=== PATIENT | female | born 1970 | race Caucasian/White ===

== ENCOUNTER 2016-09-23 15:41 | Inpatient (IN) | payer MEDICARE, MEDICAID ==
[~2016-09-23] VITALS: Ht 165.1 cm; Wt 62.5 kg
[2016-09-23 15:44] VITALS: BP 105/72; PULSE 115; RESP 16; O2SAT 98
--- NOTE | 2016-09-23 16:08 | ED.REPORT ---
HPI-Rash / Abscess Date of Service Sep 23, 2016 ED Provider: Maxwell Wong MD Pt is a 45 year old female with a hx of asthma, IV heroin abuse and multiple abscesses presenting to the ED complaining of redness, pain and swelling to her right arm, left arm, right thigh, and right hip. Associated symptoms include fever, nausea, vomiting, and abdominal tenderness onset last night. The wound on her right hip has been open for 6 months. Pt reports IV heroin use for 4 years, and that she began because her ex- was using. She reports that she has been into the ER about once per month for abscesses. She reports that her last heroin use was 12 hours ago. Pt reports that she recently moved into an apartment which she shares with others. There are other IV drug users living in the apartment. Nursing Notes Stated Complaint: ABSCESS Chief Complaint: Skin Rash/Abscess Nursing Notes Reviewed: Yes Allergies: Coded Allergies: Sulfa (Sulfonamide Antibiotics) (Verified Allergy, Severe, Rash,Itching,, 09/23/16) hydrocodone (Verified Allergy, Severe, Anaphylaxis, 09/23/16) ketamine (Verified Allergy, Severe, Swelling, big lips, 09/23/16) clonidine (Verified Adverse Reaction, Severe, Extrapyramidal Symptoms, 09/23) No Active Prescriptions or Reported Meds General Time Seen by MD: 16:06 Chief Complaint Abscess Hx Obtained From: Patient Arrived By: Walk-in Onset Occurred: More than a week ago... (6 months) Symptom Duration: Since onset Location: : Arm: Lower extremity Quality: Painful Severity: Current: Moderate Severity: Maximum: Moderate Recent Healthcare: No recent hospitalization, Recent doctor visit Similar Sx Previous: Yes Past Medical History Past Medical History Endocarditis 2 years ago Reports: IV Drug use Past Surgical History Multiple abscess I&Ds Smoking History Current Every Day Smoker Social History Drug Use: IV drugs, Meth Ambulatory Status Independent Review of Systems Constitutional: Reports: Fever GI: Reports: Abdominal pain, Nausea, Vomiting Skin: Reports Rash, Reports Swelling Complete sys rev & neg: except as marked. Physical Exam Initial Vital Signs Vital Signs (First) Date Time Temp Pulse Resp B/P Pulse Ox O2 Delivery O2 Flow Rate FiO2 09/23/16 15:44 36.4 115 16 105/72 98 Room Air Initial VS: Reviewed ENT: Mucous membranes moist, Conjunctiva normal, No scleral icterus Neck: Supple, Non-tender, Full range of motion Respiratory: Breath sounds normal, Clear to auscultation, No respiratory distress Cardiovascular: Regular rate & rhythm, Heart sounds normal, Intact distal pulses Abdomen / GI: Soft, Non-tender, No guarding, No rebound, No distention Extremities: Vascular intact, Neuro intact Neurologic: Alert, Oriented, Nonfocal Psychiatric: Mood/affect normal, Behavior normal, Normal thought content General/Constitutional: Awake, Alert, No acute distress, Well appearing Skin: Warm, Dry Lesion over right thigh: less than .5 cm. Small abscess, very superficial under area of 4x4 cm patch of granulation tissue. Right buttock: Scab, no visible abscess. Tender nodule no redness or abscess. Left arm: Draining purulent material on left upper arm. No abscess. Head / Eyes: Atraumatic, Normocephalic, EOMI, No nystagmus Small pupils Interpretation & Diagnostics Lab Results Interpretation Result Diagram: 09/23/16 1720 09/23/16 1720 Test 09/23/16 17:20 09/23/16 18:05 09/23/16 18:39 White Blood Count 32.1th/mm3 (3.8-10.1) Red Blood Count 4.54mil/mm3 (3.90-5.20) Hemoglobin 11.0g/dL (12.0-15.6) Hematocrit 34.5% (35.0-46.0) Mean Corpuscular Volume 76.0fL (81-100) Mean Corpuscular Hemoglobin 24.2pg (27.0-35.0) Mean Corpuscular Hemoglobin Concent 31.9% (32.0-37.0) Red Cell Distribution Width 14.8% (12.3-15.4) Platelet Count 504bil/L (150-400) Neutrophils (%) (Auto) 86.0% (40-74) Lymphocytes (%) (Auto) 7.4% (14-46) Monocytes (%) (Auto) 5.1% (4-12) Eosinophils (%) (Auto) 0.4% (0-5) Basophils (%) (Auto) 0.2% (0-3) Sodium Level 137mEq/L (134-144) Potassium Level 3.7mEq/L (3.5-5.2) Chloride Level 97mEq/L (97-108) Carbon Dioxide Level 23mmol/L (18-29) Blood Urea Nitrogen 22mg/dL (6-24) Creatinine 0.93mg/dL (0.57-1.00) Estimat Glomerular Filtration Rate 93mL/min (>59) Glucose Level 118mg/dL (60-99) Calcium Level 9.0mg/dL (8.5-10.1) Magnesium Level 2.1mg/dL (1.6-2.6) Total Bilirubin 0.3mg/dL (0.0-1.2) Aspartate Amino Transf (AST/SGOT) 101U/L (0-50) Alanine Aminotransferase (ALT/SGPT) 93U/L (0-32) Alkaline Phosphatase 229U/L (25-150) Troponin T < 0.010ug/L (0.0-0.011) Total Protein 8.5g/dL (6.4-8.4) Albumin 3.3g/dL (3.4-5.0) Lactic Acid Level 0.7mmol/L (0.4-2.0) Urine Color Yellow (YELLOW) Urine Appearance Clear (CLEAR,HAZY) Urine pH 5.0 (5.0-8.0) Urine Specific [place] 1.030 (1.003-1.035) Urine Protein 30mg/dL (NEG,TRACE) Urine Glucose (UA) Negativemg/dL (NEGATIVE) Urine Ketones Negativemg/dL (NEGATIVE) Urine Occult Blood Negative (NEGATIVE) Urine Nitrite Negative (NEGATIVE) Urine Bilirubin Negative (NEGATIVE) Urine Urobilinogen Normalmg/dL (NORMAL) Urine Leukocyte Esterase Negative (NEGATIVE) Urine RBC 0-2/hpf (0-2) Urine WBC 0-5/hpf (0-5) Urine Epithelial Cells Moderate/hpf (NONE-MOD) Urine Crystals None seen (NONE SEEN) Urine Bacteria Few/hpf (NONE-FEW) Urine Hyaline Casts None/lpf (NONE) Urine Granular Casts None seen (NONE SEEN) Urine Waxy Casts None seen (NONE SEEN) Urine Red Blood Cell Casts None seen (NONE SEEN) Urine White Blood Cell Casts None seen (NONE SEEN) Urine Mucus Present (None Seen) Urine Trichomonas None seen (NONE SEEN) Urine Yeast None (NONE SEEN) Urinalysis Comment None Urine Culture Reflexed Not indicated ECG Interpretation Time: 17:10 Interpreted by: ED physician Normal ECG Interpretation: Normal ECG w/ rate of... (93), Normal sinus rhythm Re-Eval/Medical Decision Med Decision/Clinical Course Regarding her opiate addiction I recommend Suboxone 16 mg every 24 hours. First dose should be at the patient's request as I feel she can best assess her withdrawal status and the appropriateness of first dosing. At the time of discharge, I recommend follow-up at ideal option, Dr. Serrano, Dr. Cantu or myself may be able to help with an outpatient prescription at the time of discharge. Re-Evaluation/Progress #1: Time of Eval: 17:20 Patient Status: Condition improved Re-Evaluation/Progress Note: Performed bedside ultrasound. Lesion over right thigh: less than .5 cm. Small abscess, very superficial under area of 4x4 cm patch of granulation tissue. Right buttock: Scab, no visible abscess. Tender nodule no redness or abscess. Left arm: Draining purulent material on left upper arm. No abscess. Re-Evaluation/Progress #2: Time of Eval: 17:55 Patient Status: Condition improved Re-Evaluation/Progress Note: Discussed plan for admission. Pt understands and agrees. Consultation : Referral / Consult Name: Jg Gunn MD Consulted With: Hospitalist Call Returned at: 19:09 Health Safety And Environment Manager: Will see patient, Agrees with plan, Accepts admit Counseled Regarding: Diagnosis, Lab results, Need for follow-up, When/why to return to ED Discharge & Departure Impression: Primary Impression: Fever Additional Impressions: IV drug abuse Opiate abuse, continuous Cellulitis Disposition: ADMITTED TO HOSPITAL Discharge Condition All VS Reviewed: Yes Condition: Improved Referrals: Guillaume Cortez MD (Family) Henny Attestation Portions of this note were transcribed by Candy Vazquez. I, Dr. Wong personally performed the history, physical exam and medical decision-making; I reviewed and confirmed the accuracy of the information in the transcribed note. Signed by: Henny Mei, 09/23/2016 at 9893. copies to: Guillaume Cortez MD, Kirk H MD Sep 23, 2016 16:08 CANDY VAZQUEZ Sep 23, 2016 16:24
[2016-09-23] MEDS ORDERED: Clindamycin Inj 900 MG in IV Premix 1 EACH IV ONE (17:00)
[2016-09-23] MEDS ORDERED: 0.9% Sodium Chloride 1,000 ML IV ONE (17:00)
[2016-09-23 17:33] LABS: BASOPHILS % (AUTO) 0.2 % (0-3); EOSINOPHILS % (AUTO) 0.4 % (0-5); MONOCYTES % (AUTO) 5.1 % (4-12); Mean Corpuscular Hemoglobin 24.2 pg (27.0-35.0); Platelet Count 504 bil/L (150-400)
[2016-09-23] MEDS ORDERED: Vancomycin Inj 1,250 MG in 0.9% Sodium Chloride 250 ML IV ONE (17:55)
[2016-09-23] MEDS ORDERED: Vancomycin Dose per Pharmacist XX ONE (17:55)
[2016-09-23 18:00] LABS: TROPONIN T < 0.010 ug/L (0.0-0.011)
[2016-09-23 18:05] LABS: Magnesium 2.1 mg/dL (1.6-2.6)
[2016-09-23 18:51] VITALS: BP 99/64; PULSE 94; RESP 15; O2SAT 98
[2016-09-23 18:55] LABS: APPEARANCE,URINE CLEAR (CLEAR,HAZY); COLOR,URINE YELLOW (YELLOW); OCCULT BLOOD,URINE NEGATIVE (NEGATIVE); UROBILINOGEN,URINE NORMAL (NORMAL)
[2016-09-23] MEDS ORDERED: Alum-Mag Hydrox-Simeth 30 mL Suspension PO PRN ×2 (20:40→22:05)
[2016-09-23] MEDS ORDERED: Ondansetron 2 mg/mL 2 mL Inj IVPUSH PRN (20:40)
[2016-09-23 21:00] VITALS: BP_SYST 100; BP_SYST 92; BP_DIAS 46; BP_DIAS 49; PULSE 84; PULSE 85; RESP 16; RESP 18; O2SAT 96; O2SAT 97
--- NOTE | 2016-09-23 21:04 | PCM.HPMED ---
Subjective Date of Service Sep 23, 2016 Primary Provider: Admitting Physician: Jg Gunn MD Primary Care Physician: Nopshayla Attending Physician: Jg Gunn MD Admit Status: From the Emergency Department Chief Complaint: Left arm pain and right leg pain. History of Present Illness: This is a 45 year old female with history of IV heroin use, endocarditis treated 2 years ago, and hepatitis C who presents with abscess. The most recent abscess began one week ago and is located in her left arm . She came to the ED on September 19 and had a I&D at that time and was placed onto doxycycline. She states that the abscess it much improved since the I&D although still somewhat tender. She also states she has a abrasion present on the lateral, right lower thigh . She states that this abrasion began six months ago and has not healed. She returned to the hospital today due to several episodes of vomiting and fever she measured of tmax 101.7f. She does have increased urinary frequency and describes urinary hesitancy as well. She continues to use IV heroin and her last use was 5:00am this morning. Of note, she expresses interest in suboxone as she does want to stop using. She did share needles with her up until several months ago. She denies any chest pain or pressure, shortness of breath, diarrhea, constipation. Patient is also requesting STD testing as she stated that her had multiple partners. In the ED initial vitals were temp 36.4c, pulse 115, respiratory rate 16, blood pressure 105/72, and satting at 97% on room air. Initial laboratory values are WBC of 32.1 with left shift, hgb 11.0, hct 34.5, mcv 76, platelet count of 504. CMP significant for glucose of 118, AST 101, ALT 93. EKG showed sinus rhythm with rate of 90 and no axis deviation. Qtc of 420. Blood cultures pending. In the ED she was given vancomycin, clindamycin. Bolus of NS given in ED. Review of Systems: A comprehensive review of systems was conducted with the patient and found to be negative except as above in the History of Present Illness. Allergies Coded Allergies: Sulfa (Sulfonamide Antibiotics) (Verified Allergy, Severe, Rash,Itching,, 09/23/16) hydrocodone (Verified Allergy, Severe, Anaphylaxis, 09/23/16) ketamine (Verified Allergy, Severe, Swelling, big lips, 09/23/16) clonidine (Verified Adverse Reaction, Severe, Extrapyramidal Symptoms, 09/23) Home Medications Aleve 1 per day. PMH History of endocarditis 2 years ago. IV heroin use. Anxiety Sleep disturbance Surgical History Hysterectomy in 2002 Cholecystectomy in 2004 Rectocele/cystocele repair 2006 History of I&D's of abscesses. Family History Mother: healthy Father: CAD and dementia. Social History Hx Alcohol Use: No Hx Substance Use: Yes (IV heroin daily, snorts meth infrequently.) Smoking Status: Current Every Day Smoker Additional Information Patient was homeless until two weeks ago. She now is renting a house. Exam Vital Signs Vital Sign - Last Date Time Temp Pulse Resp B/P Pulse Ox O2 Delivery O2 Flow Rate FiO2 09/23/16 18:51 94 15 99/64 98 09/23/16 15:44 36.4 Room Air Exam General: No acute distress, appropriately interactive HEENT: Normocephalic, atraumatic. External ears without defect. Pupils equal, round, and reactive to light and accommodation. Anicteric sclerae, moist conjunctivae, and no lid lag. Oropharynx free of erythema and cobble stoning with moist mucosa. Neck: Supple with full range of motion. No jugular venous distension. No bruits. No lymphadenopathy or thyromegaly. Cardiovascular: Regular rate and rhythm with no murmurs, rubs, or gallops appreciated Pulmonary: Clear to auscultation bilaterally with no crackles, wheezes, or rhonchi. Normal respiratory effort with no use of accessory muscles. Abdomen: Bowel tones present. Soft, nondistended, mild tenderness in right lower quadrant without rebound or guarding. No hepatosplenomegaly or masses appreciated. Extremities: No clubbing, cyanosis, edema appreciated. Skin: 3x5 cm abrasion of lateral, right thigh with overlaying granulation tissue and tenderness to palpation. Left, lateral upper arm. Small amount of discharge from open incision. No surrounding erythema. Neurological: Cranial nerves grossly intact. Normal muscle strength, tone, and bulk. Psychiatric: Normal mood and affect. Alert and oriented to person, place, and time. Lab and Diagnostics Result Diagram: 09/23/16 1720 09/23/16 1720 Assessment & Plan This is a 45 year old female IV heroin user with history significant for hepatitis c and treated endocarditis with multiple sites of possible infection on her body including abscess. Her WBC on admit was 32.1 with left shift with heart rate of 115. . She does qualify for sepsis criteria. 1 Liter bolus NS given in ED. Sites of possible infection include left upper arm abscess. I&D performed on this abscess in ED on September 19. Right lower extremity abrasion with granulation tissue overlaying that has been non-healing for six months. As she is a IV heroin user need to rule out endocarditis and blood cultures have been drawn. We have admitted her for IV antibiotics and to rule out endocarditis. Sepsis, present on admission, ongoing: -WBC 32.1. Heart rate 115. Multiple potential sources of infection. -Continue Vancomycin as this will cover purulent abscesses as well as potential for endocarditis. -MRSA swab pending, blood cultures pending ESR, CRP pending. -TTE ordered due to possibility of endocarditis. If this is negative but cultures positive consider KAYDEN. -NS at 75ml/hr. Right lateral lower extremity abrasion, present on admission, ongoing: -Present for six months and nonhealing. -Wound care ordered. Left arm abscess, present on admission, stable: -Improved after I&D on 09/19. Was on Doxycycline outpatient. -Wound care ordered. Microcytic anemia, present on admission, ongoing: On admit: hgb 11.0 and MCV 76.0. -Unknown chronicity. Possibly anemia of chronic disease vs iron deficiency anemia. -Iron studies panel, ferritin pending. -Fecal occult blood test ordered Thrombocytosis, present on admission, ongoing: -Platelets on admit 504. -Likely reactive. -Continue to monitor. Elevated transaminases, present on admission, ongoing: -AST 101, ALT 93. Alk phos 229. -Likley secondary to hepatitis c. -Continue to monitor. -Consider ultrasound of abdomen in morning. -Hepatitis panel ordered. Elevated blood glucose, present on admission, ongoing: -Glucose of 118. -Fasting glucose in morning ordered. IV heroin abuse, present on admission, ongoing: -At onset of symptoms of withdraw Suboxone 16mg (two strips). Could do third strip if needed. -As hospitalist can only prescribe Suboxone in hospital when patient leaves Dr. Wong or Dr. Talbert in the ED should be contacted prescribe outpatient Suboxone. -Encourage patient to followup with [facility] the local Suboxone providers. Reported history of hepatitis C, present on admission, ongoing: -Hepatitis panel ordered. High risk sexual behavior, present on admission: -Patient's had multiple partners. They were also sharing needles. -RPR, HIV, Gonorrhea/chlamydia ordered. DVT prophylaxis with enoxaparin. Patient is admitted under inpatient status with expected length of stay greater than 2 midnights due to severity of presenting symptoms, risk of adverse event, and complexity of treatment plan. Pain Evaluation: Adequate Pain Control Resuscitation Status: CPR: Attempt Resuscitation Attending Statement The patient was seen and examined together with Dr. Cruz on 09/23 and I agree with the history, exam and plan as outlined in the note above. Davy Cruz DO Sep 23, 2016 21:04 Jg Gunn MD Sep 23, 2016 22:28
[2016-09-23] MEDS: 0.9% Sodium Chloride 1,000 ML IV SCH (22:47)
[2016-09-23 23:16] LABS: Unsaturated Iron Binding 222.6 ug/dL
--- NOTE | 2016-09-23 23:27 | PCM.PHAPRO ---
Progress Date of Service: Sep 23, 2016 Left arm pain and right leg pain. Vancomycin Management Per Pharmacy: Indication: Abscess w/ sepsis Goal Trough: ~15 mg/dL Age: 45 yo F Weight: 62.7 kg Labs: WBC: 32.1 ESR/CRP: 80/20.3 Lactic Acid: 0.9 SrCr: 0.93 Est CrCl: ~70 mL/min Vitals: HR: Elevated on admit (115 BPM), now in the 80s BP: SBP in the high 90s RR: ~18 BPM Recommendation: Load: Vancomycin 1250 mg IV x 1 Maintenance: Vancomycin 1000 mg IV Q12h Vanco Trough: on 09/25 @ 0730 Pharmacy to continue to monitor and adjust as needed. Thank You, Maria Teresa Atwood, Pharm D. Maria Teresa Atwood Sep 23, 2016 23:27
[2016-09-23] MEDS: Ondansetron 2 mg/mL 2 mL Inj IVPUSH PRN (23:35)
[2016-09-24] VITALS (8 sets, daily range): BP systolic 102–132; BP diastolic 47–72; PULSE 69–92; RESP 18–20; O2SAT 94–98
--- NOTE | 2016-09-24 01:10 | NUR ---
Admit to room 3008@21:00 with fever and infective endocarditis. BP 100/49 P 85 96% O2 Sat on RA, 36.7 Celsius. Oriented to room and POC on whiteboard. Pain 5/10 refusing Tylenol, slight nausea and left arm/right thigh skin redness and pain. Alert and Oriented x3.
--- NOTE | 2016-09-24 01:15 | NUR ---
Med Rec Currently not taking any prescription medications. Verified preferred Pharmacy.
--- NOTE | 2016-09-24 05:49 | NUR ---
COWS Clinical Opiate Withdrawal Scale log in chart started @06:00 09/24/16 Score = 3 for resting pulse 85 +1, flushed face with visible sweat +2 Sedation Score = 0
[2016-09-24 06:07] LABS: BASOPHILS % (AUTO) 0.2 % (0-3); MONOCYTES % (AUTO) 5.3 % (4-12); Mean Corpuscular Hemoglobin 24.4 pg (27.0-35.0); Mean Corpuscular Volume 78.5 fL (81-100); NEUTROPHILS % (AUTO) 81.6 % (40-74); Platelet Count 459 bil/L (150-400)
--- NOTE | 2016-09-24 07:50 | PCM.PNMED ---
Subjective Date of Service Sep 24, 2016 Subjective Pt feeling "ok" this morning, certainly better than when she came in . Still having occasional sweats, no other complaints this morning. Denies chest pains, palpitations, or shortness of breath. She notes ulcerations are not very painful. NOt noting symptoms of opiate withdrawal, but also states this generally takes a little longer. She confirms a desire to restart Suboxone when able. Exam Vital Signs Vital Sign - Last Date Time Temp Pulse Resp B/P Pulse Ox O2 Delivery O2 Flow Rate FiO2 09/24/16 05:36 36.6 88 18 112/61 97 Room Air Intake and Output 09/23/16 09/23/16 09/24/16 Cumulative From/Thru 15:00 23:00 07:00 09/23/16 15:44 - 09/24/16 06:33 Intake Total 1000 ml 891 ml 1891 ml Balance 1000 ml 891 ml 1891 ml IV Total 1000 ml 891 ml 1891 ml General: Alert, Oriented X3, Cooperative, Mild Distress Eyes: Other (Mild dialation of pupils. ) Nose: Mucous Membr Moist/[place] Mouth: Mucous Membr Moist/[place] Chest & Lungs: Clear to auscultation & percussion Cardiovascular: Regular Rate/Rhythm, No Murmurs/Rubs/Gallops Abdomen: Non-tender, Non-distended, No hepatosplenomegaly Skin: Other (ulceration of right thigh, lesser skin irritation of left should. Pt is mildly diaphoretic, face especially. ) Neurological: Grossly Neurologically Intact, Other (NO yawning noted during exam. ) IVs and Medications Medications Reviewed: Medications were reviewed in detail Lab and Diagnostics Result Diagram: 09/24/16 0535 09/24/16 0535 Assessment & Plan This is a 45 year old female IV heroin user with history significant for hepatitis c and treated endocarditis with multiple sites of possible infection on her body including abscess. Her WBC on admit was 32.1 with left shift with heart rate of 115. . She does qualify for sepsis criteria. 1 Liter bolus NS given in ED. Sites of possible infection include left upper arm abscess. I&D performed on this abscess in ED on September 19. Right lower extremity abrasion with granulation tissue overlaying that has been non-healing for six months. As she is a IV heroin user need to rule out endocarditis and blood cultures have been drawn. We have admitted her for IV antibiotics and to rule out endocarditis. Sepsis, present on admission, ongoing: -WBC 32.1. Heart rate 115. Multiple potential sources of infection. -Continue Vancomycin as this will cover purulent abscesses as well as potential for endocarditis. -MRSA swab pending, blood cultures pending ESR, CRP pending. -TTE ordered still pending due to possibility of endocarditis. If this is negative but cultures positive consider KYADEN. - Continue NS at 75ml/hr. Right lateral lower extremity abrasion, present on admission, ongoing: -Present for six months and nonhealing. -Wound care ordered. Left arm abscess, present on admission, stable: -Improved after I&D on 09/19. Was on Doxycycline outpatient. -Wound care ordered. Microcytic anemia, present on admission, ongoing: On admit: hgb 11.0 and MCV 76.0. -Unknown chronicity. Possibly anemia of chronic disease vs iron deficiency anemia. -Iron studies panel, ferritin pending. -Fecal occult blood test ordered Thrombocytosis, present on admission, ongoing: -Platelets on admit 504. -Likely reactive. -Continue to monitor. Elevated transaminases, present on admission, ongoing: -AST 101, ALT 93. Alk phos 229. -Likley secondary to hepatitis c. -Continue to monitor. -Consider ultrasound of abdomen in morning. -Hepatitis panel ordered. - LFTs are downward trending. Elevated blood glucose, present on admission, ongoing: -Glucose of 118. -Fasting glucose in morning ordered. IV heroin abuse, present on admission, ongoing: -At onset of symptoms of withdraw Suboxone 16mg (two strips). Could do third strip if needed. -As hospitalist can only prescribe Suboxone in hospital when patient leaves Dr. Wong or Dr. Talbert in the ED should be contacted prescribe outpatient Suboxone. -Encourage patient to followup with [facility] the local Suboxone providers. - Withdrawl symptoms not yet significant enough to consider Suboxone induction, will revisit later today. Reported history of hepatitis C, present on admission, ongoing: -Hepatitis panel ordered. High risk sexual behavior, present on admission: -Patient's had multiple partners. They were also sharing needles. -RPR, HIV, Gonorrhea/chlamydia ordered. DVT prophylaxis with enoxaparin. Patient is admitted under inpatient status with expected length of stay greater than 2 midnights due to severity of presenting symptoms, risk of adverse event, and complexity of treatment plan. Pain Evaluation: Adequate Pain Control Resuscitation Status: CPR: Attempt Resuscitation Time spent 25 minutes Vikram Toussaint DO Sep 24, 2016 07:50
[2016-09-24] MEDS ORDERED: Vancomycin Dose per Pharmacist XX SCH (08:30)
[2016-09-24] MEDS ORDERED: Vancomycin 1 Gm/200 mL NS Premix IV SCH (08:30)
[2016-09-24] MEDS: 0.9% Sodium Chloride 1,000 ML IV SCH ×2 (10:25→23:01)
--- NOTE | 2016-09-24 10:57 | DRSVH ---
[facility] [address] [place] [address] Echocardiogram Report Name: KIRSTEN KAUFFMAN Date: 09/24/2016 Height: 65 in Hospital Exam Location: [facility] Weight: 138 lb Gender: Female BSA: 1.7 m2 : 1970 Age: 45 yrs BP: 112/61 mmHg Reason For Study: Fever, IVDA History: Hx. endocarditis Ordering Physician: HOSPITALIST ARANZA Performed By: Ruben Montes Referring Physician: RAMY THAPA Interpretation Summary Patient cancelled exam longterm into parasternals due to discomfort. The left ventricular ejection fraction is grossly normal. There is no significant valvular heart disease. Procedure: A two-dimensional transthoracic echocardiogram with color flow and Doppler was performed. The study quality was technically adequate. Left Ventricle: The left ventricular ejection fraction is grossly normal. Mitral Valve: The mitral valve is grossly normal. There is trace mitral regurgitation. Aortic Valve: The aortic valve is normal in structure and function. No aortic regurgitation is present. Tricuspid Valve: The tricuspid valve is not well visualized, but is grossly normal. There is mild tricuspid regurgitation. MMode/2D Measurements & Calculations LVIDd LVOT diam LV briscoe. diameter/BSA LV sys. diameter/BSA : 4.5 cm (cm/m^2): 2.7 (cm/m^2): 1.9 LVIDs Ao root diam : 3.2 cm FS: 27.6 % asc Aorta Diam EPSS : 0.3cm IVSd : 0.8cm LVPWd : 0.8cm Doppler Measurements & Calculations TR max tami: 209.0 cm/sec TR max P.5 mmHg Electronically signed by: Guero Saravia on Reading Physician:09/24/2016 10:56 AM
--- NOTE | 2016-09-24 11:00 | NUR ---
COWS Pt scoring a 9 on COWS scale. Pt initially req Suboxone then stated, "I'll take it later... when I feel worse." Pt is req something for "restless legs." notified. Addendum: 09/24/16 at 1509 by MODESTA CARTER RN *Subutex ordered, not Suboxone.
[2016-09-24] MEDS: Buprenorphine 2 mg SL Tablet SL PRN (11:31)
[2016-09-24] MEDS: Ondansetron 2 mg/mL 2 mL Inj IVPUSH PRN ×2 (11:35→17:39)
--- NOTE | 2016-09-24 11:41 | NUR ---
COWS Pt reports she feels she is "really withdrawing now, I've done this before and it's miserable." COWS score at 17, SL Suboxone given as well as IV antiemetic. Addendum: 09/24/16 at 1455 by MODESTA CARTER RN within ~45 minutes, pt COW score 0. Addendum: 09/24/16 at 1508 by MODESTA CARTER RN *Subutex given, not Suboxone.
[2016-09-24] MEDS ORDERED: cefTRIAXone Inj 1,000 MG in Dextrose 5% Minibag Plus 50 ML IV SCH (13:25)
--- NOTE | 2016-09-24 15:46 | NUR ---
Wound Note Wound orders received, Patient seen at bedside. 45 yo female with right lateral thigh wound and left lateral deltoid wound in setting of IV drug habit. Right lateral thigh wound: 5 cm L x 2.5 cm W x 0.1 cm D, wound base is granulation tissue, wound is chronic in appearance (previously treated with NPWT), cleaned this wound with saline and gauze, redressed with Xeroform (yellow) and adhesive foam dressing. Left lateral deltoid wound: 1 cm L x 0.5 cm W x 1 cm D, tunnels 2 cms inferiorly, cleaned this wound with q tips and hydrogen peroxide, packed with a single strip of Aquacell ag (in room,foil package) covered with 2x2 gauze and steri stripped in place. Patient tolerated treatment well. Wounds to be cleaned and dressings to be changed by nursing daily during hospitalization. Follow up at wound center on discharge.
[2016-09-24] MEDS: DAPTOmycin Inj 500 MG in 0.9% Sodium Chloride 50 ML IV SCH (17:38)
--- NOTE | 2016-09-24 18:38 | NUR ---
Activity/nausea Pt amb to BR ind, tolerating activity well with no c/o dizziness with change in position. One c/o nausea this AM, PRN antiemetic effective. COWS at a 1 for nausea. Bed in lowest, locked position and call light in reach.
--- NOTE | 2016-09-24 21:58 | DRSVH ---
PROCEDURE: MRI FEMUR RIGHT WITH AND WITHOUT CONTRAST ([id number]) INDICATIONS: Persistent right lat thigh abscess in IVDU-? sinus tra TECHNIQUE: Noncontrast coronal T1 spin echo and STIR, sagittal T1 spin echo with fat saturation and STIR, axial T1 spin echo and T2 fast spin echo with fat saturation. After the administration of contrast, axial/ sagittal/coronal T1 spin echo with fat saturation through the right thigh. COMPARISON: None. FINDINGS: Image quality: Excellent. Bones: The visualized bone marrow demonstrates normal signal on all sequences. The overlying cortex appears intact. No abnormal intraosseous enhancement. Soft tissues: There is skin thickening and increased enhancement in the right lateral thigh, consist ent with cellulitis. No subcutaneous fluid collection. No sinus tract is identified. No soft tissue m ass is visualized. The scanned muscles demonstrate normal overall bulk and internal signal. There a re mildly enlarged inguinal lymph nodes bilaterally, most likely reactive adenopathy. IMPRESSION: 1. Cutaneous thickening with T2 increased signal and enhancement consistent with cellulitis. No fluid collection is present. 2. No evidence of osteomyelitis. 3. Bilateral enlarged inguinal lymph nodes, most likely reactive. Dictated by: Erika Park M.D. on 09/24/2016 at 20:48 Transcribed by: NIKI on 09/24/2016 at 20:57 Approved by: Erika Park M.D. on 09/25/2016 at 19:18
[2016-09-25] VITALS (8 sets, daily range): BP systolic 109–130; BP diastolic 61–76; PULSE 65–88; RESP 18; O2SAT 97–99
[2016-09-25] MEDS: 0.9% Sodium Chloride 1,000 ML IV SCH (04:56)
--- NOTE | 2016-09-25 05:48 | NUR ---
Uneventful Patient slept throughout the night. denies pain/discomfort. dressings to left upper arm and right thigh c/d/i. IVF infusing. patient COWS score low 1-3 slight sweating noticed at 0400. no other s/s of withdrawal at this time. will continue to monitor
--- NOTE | 2016-09-25 07:07 | CONS ---
[address] [address] CONSULTATION REPORT PATIENT: KIRSTEN KAUFFMAN : 1970 MR#: [id number] ADMIT: 09/23/2016 JOB ID: [id number] INFECTIOUS DISEASE CONSULTATION: DATE OF SERVICE: 09/24/[address] Khan for this consult. REASON FOR CONSULTATION: Multiple soft tissue infections in an IV drug user. HISTORY OF PRESENT ILLNESS: The patient is a 45-year-old mcc IV heroin user who just moved to this area from [place]. She tells me that in recent years she has had a long hospital stay, two months, at [facility] with endocarditis. She is not aware of any of the particulars, but says she was critically ill. Over the past year or two she has had numerous admissions to [facility] in [place] including a recent week long hospital stay for a severe right upper extremity abscess. She also notes she has a chronic right thigh infection for which she is off and on antibiotics. The patient states that she has had chronic drainage from her right upper thigh for months, and she has been told that it is bad cellulitis. Her right upper arm infection she said was cured during her recent week long stay in [place]. Now, she has developed fevers and chills, headache, blurry vision, myalgias, arthralgias and severe left triceps pain. This started a couple weeks ago. Five days ago she went to [facility] where an incision and drainage was performed. They did a culture and I, after considerable effort, obtained the result. The culture at [facility], five days ago, grew MRSA as well as group A strep. The result of that culture is now on the chart. Interestingly, the MRSA was resistant to Bactrim and clindamycin and was quite a nasty organism. The patient was given a prescription for doxycycline when she left [facility] last week, but she says she did not have any money to get the prescription, so never took any of the antibiotic. She now presents and is admitted here with worsening left upper extremity pain in and around the triceps. PAST MEDICAL HISTORY: 1. Endocarditis, treated at [facility] two years ago for two months. 2. Hepatitis C which reports is active but she has no details. 3. Innumerable soft tissue infections, mostly treated at [facility] as well as [facility], all due to IV heroin use. 4. IV heroin use. SOCIAL HISTORY: The patient does not drink alcohol but injects heroin every day and sometimes snorts meth. She is an ongoing cigarette smoker. She is intermittently homeless but lately living with a number of friends who apparently also do heroin here in the [facility] area. FAMILY HISTORY: Negative for tuberculosis in first degree relatives. REVIEW OF SYSTEMS: The patient states she has been having headaches for a couple of weeks as well as blurry vision. She has also had a mild sore throat, but no trouble swallowing. She states she has not had a stiff neck. She does not have cough, shortness of breath or chest pain. She has had nausea and vomiting for a week or two. No abdominal pain. No urgency, frequency or dysuria, and she is not . She has pain on her right lateral thigh which is chronic from a draining wound there. She also has an abscess in her left triceps for which she was seen last week at [facility]. The remainder of the review of systems is negative. PHYSICAL EXAMINATION: Reveals a somewhat disheveled woman who looks older than 45. She is afebrile. Temperature 36.6, pulse 86, respiratory rate 19, blood pressure 132/65. She is saturating while on room air. She is awake and alert. Eyes without conjunctival hemorrhage. Nose is normal. Oral cavity: No thrush or . Neck: Supple. Her lung are clear. Cardiac: Tones regular rate and rhythm without a murmur. Her abdomen is soft and nontender. There is no hepatosplenomegaly. No ascites and no caput medusae. She does have some mild suprapubic tenderness however without a palpable mass or bladder. No inguinal adenopathy. In the left triceps area, there is a packed abscess measuring about 3 x 3 cm. I removed some of the packing but not all of it. This area of induration is surrounded by cellulitis. The right triceps seems benign, but there is a scar there from her prior abscess. The right lateral thigh has about a 3 x 2 cm open, draining wound. She says this has been there for months. The feet and ankles appear normal. There are no other areas of soft tissue infection. There are needle tracks. The patient is neurologically intact. LABORATORIES: Labs included a white count yesterday when she was admitted, 32,000; today 20,000. Left shift is noted. Creatinine 0.71. ALT is 56, ALT 176, albumin 2.7. CRP is 20. Urine: Less than 5 white cells. Hep C is pending, but the patient says it always positive. RPR is pending as well. Three sets of blood cultures are negative, but they are only 24 hours old. MRSA screen of the nose is negative, but the abscess culture from [facility] five days ago was growing MRSA and group A strep. An echocardiogram has been done. The patient interrupted it before it was complete complaining of pain from the transthoracic echo, but no valvular lesions were seen. X-rays have not been done during this admission. IMPRESSION: This is a very active IV drug user with many, many serious infections the past couple of years by her report. She has never been seen at our hospital. She has had endocarditis and abscesses and says she has a chronic draining wound in her right lateral thigh which she has been told is unusual cellulitis. I am concerned there could be deeper infection to the right thigh, such as osteo with a sinus tract. Also notable is that she has a very acute left triceps abscess and we know that has got MRSA and group A strep in it. RECOMMENDATIONS: 1. I asked the forward air controller/air officer to get all relevant records from [facility] and [facility]. 2. I spoke to the people in [place] myself and got a copy of the lab results from last week. 3. The patient's current antibiotic is ceftriaxone which will be inadequate. We will go ahead and stop that and instead put her on daptomycin, a dose of 500 mg IV once a day. 4. We await the pending blood cultures. 5. I will order an MRI scan of the right thigh. 6. We will await the Hep C and HIV information. 7. I would not give this patient a PICC line. If she does well and we have no proof of endocarditis by Tuesday we will send her out with a dose of dalbavancin. Thank you very much for consult. LAURIE
[2016-09-25 07:14] LABS: Hepatitis A Antibody IgM Negative (Negative); Hepatitis B Core Antibody IgM Negative (Negative)
[2016-09-25] MEDS ORDERED: Vancomycin Serum Trough XX ONE (07:30)
[2016-09-25 08:26] LABS: BASOPHILS % (AUTO) 0.4 % (0-3); EOSINOPHILS % (AUTO) 4.5 % (0-5); MONOCYTES % (AUTO) 6.8 % (4-12); Mean Corpuscular Hemoglobin 24.4 pg (27.0-35.0); NEUTROPHILS % (AUTO) 64.8 % (40-74); Platelet Count 457 bil/L (150-400)
--- NOTE | 2016-09-25 09:20 | NUR ---
HUMBERTO Signed. BASHIR Blake
[2016-09-25] MEDS: Buprenorphine 2 mg SL Tablet SL PRN (09:24)
[2016-09-25 09:49] LABS: Bilirubin, Direct 0.2 mg/dL (0.0-0.3)
--- NOTE | 2016-09-25 11:14 | NUR ---
Social Work-initial assessment/ chemical dependency: Data:See initial assessment. Pt is a 45 y/o female who was admitted on 09/23/16 for fever and IV drug use per H&P. Pt's insurance is [facility] and [facility] supp and PCP is not listed. EMR reviewed. Pt's readmission score is 4-high risk. SANDRA met with pt at bedside to discuss discharge planning, SANDRA role explained. Pt is alert and oriented x3. Pt just recently moved to [place], had been homeless prior to this. Pt now living in a house where she rents a room. Pt is independent at baseline and does not drive. Pt uses the local bus for transport. Pt has no HH or SNF history. pt has no terminal worker care insurance or VA benefits. SW discussed DPOA/ advanced directive, pt declining information at this time. Pt states her mother lives out of the area, but her closest friend is Lambert Dinero, . Pt is being followed by [facility] and pt may require long course of IV abx. Pt anticipates to discharge back her home when medically stable. MD order received for substance use discussion and resources. SANDRA discussed pt's IV heroin and occasion Meth use. Pt states she has been using heroin for about 3 years with minimal amounts of sobriety. Pt states she occasionally uses meth, but not very often. Pt states she has been to intpt treatment before at [facility] and has done detox programs several times. Pt hopes to get on Suboxone program. SANDRA discussed CPD here at the hospital and pt is agreeable to meeting with Lisa. SANDRA had pt sign GILL, original placed in the chart. SANDRA provided referral to [facility]. SANDRA will continue to follow. Pt does not have PCP locally in this community, SANDRA will await orders for further discussion around PCP likely at [facility]. Assessment:Pt to benefit from CDP. Plan:Anticipate pt to discharge home when medically stable. Pt may need long course of IV abx. GILL signed for Lisa with [facility] to meet with pt, SANDRA has provided referral. SANDRA will continue to follow. BASHIR Blake Addendum: 09/25/16 at 1121 by CARLITOS HERRON SS Amended: Links added. Addendum: 09/26/16 at 1043 by CARLITOS HERRON SS [facility] has seen pt and will continue to work with pt while Hospitalization. Pt is hopeful to get into Suboxone clinic and do outpt CD treatment. BASHIR Blake
--- NOTE | 2016-09-25 11:32 | PCM.PNMED ---
Subjective Date of Service Sep 25, 2016 Subjective Patient overall doing well overnight. Denies any fever chills or sweats. He also denies any chest pains or palpitations, difficulties breathing. She is still experienced significant pain however sites of ulceration especially on right thigh, not currently controlled with when necessary medications. Has requested Motrin which was effective in the past. No other acute complaints at this time. Appetite is good. Symptoms of opiate withdrawal are essentially resolved since initiation of Suboxone. Exam Vital Signs Vital Sign - Last Date Time Temp Pulse Resp B/P Pulse Ox O2 Delivery O2 Flow Rate FiO2 09/25/16 10:59 70 09/25/16 08:47 36.4 113/71 09/25/16 04:47 18 98 Room Air Intake and Output 09/24/16 09/24/16 09/25/16 Cumulative From/Thru 15:00 23:00 07:00 09/23/16 15:44 - 09/25/16 06:07 Intake Total 800 ml 1805 ml 1231 ml 5727 ml Output Total 825 ml 1600 ml 2025 ml 4450 ml Balance -25 ml 205 ml -794 ml 1277 ml Intake Oral 800 ml 1036 ml 400 ml 2236 ml IV Total 769 ml 831 ml 3491 ml Output Urine Total 825 ml 1600 ml 2025 ml 4450 ml # Bowel Movements 1 1 Exam General: Alert, Oriented X3, Cooperative, No acute Distress Eyes: PERRL, normal sized pupils Mouth: Mucous Membrane Moist/Madeline Chest & Lungs: Clear to auscultation & percussion Cardiovascular: Regular Rate/Rhythm, No Murmurs/Rubs/Gallops Abdomen: Non-tender, Non-distended, No hepatosplenomegaly Skin: Ulceration of right thigh, lesser skin irritation of left should. Pt non- diaphoretic. Neurological: Grossly Neurologically Intact, No yawning noted during exam. IVs and Medications Medications Reviewed: Medications were reviewed in detail Lab and Diagnostics Result Diagram: 09/25/1673409/25/16 0735 Assessment & Plan This is a 45 year old female IV heroin user with history significant for hepatitis c and treated endocarditis with multiple sites of possible infection on her body including abscess. Her WBC on admit was 32.1 with left shift with heart rate of 115. . She does qualify for sepsis criteria. 1 Liter bolus NS given in ED. Sites of possible infection include left upper arm abscess. I&D performed on this abscess in ED on September 19. Right lower extremity abrasion with granulation tissue overlaying that has been non-healing for six months. As she is a IV heroin user need to rule out endocarditis and blood cultures have been drawn. We have admitted her for IV antibiotics and to rule out endocarditis. Sepsis, present on admission, ongoing: -WBC 32.1. Heart rate 115. Multiple potential sources of infection., now improving. -Continue Vancomycin discontinued with negative MRSA, however given concern for deep infection of thigh per ID recs, pt has been transitioned at the recommendation of infectious disease specialist to [facility]. -Blood cultures pending, as are outpatient records pertaining to previous blood and wound cultures. -TTE was not completed due to patient discomfort, but initial review did not seem to demonstrate evidence of valvular pathology. If blood cultures are positive or concern is anxiety may need to consider KAYDEN in the future - Continue NS at 75ml/hr. Right lateral lower extremity abrasion, present on admission, ongoing: -Present for six months and nonhealing. -Wound care ordered. Left arm abscess, present on admission, stable: -Improved after I&D on 09/19. Was on Doxycycline outpatient. -Wound care ordered. Microcytic anemia, present on admission, ongoing: On admit: hgb 11.0 and MCV 76.0. -Unknown chronicity. Possibly anemia of chronic disease vs iron deficiency anemia. -Iron studies panel, ferritin pending. -Fecal occult blood test ordered Thrombocytosis, present on admission, ongoing: -Platelets on admit 504. -Likely reactive. -Continue to monitor. Elevated transaminases, present on admission, ongoing: -AST 101, ALT 93. Alk phos 229. -Likely secondary to hepatitis c. -Continue to monitor. -Consider ultrasound of abdomen in morning. -Hepatitis panel ordered. - LFTs are downward trending. Elevated blood glucose, present on admission, ongoing: -Glucose of 118. -Fasting glucose in morning ordered. IV heroin abuse, present on admission, ongoing: -At onset of symptoms of withdraw Suboxone 16mg (two strips) was provided with good result - As is now continue daily. -As hospitalist can only prescribe Suboxone in hospital when patient leaves Dr. Wong or Dr. Talbert in the ED should be contacted prescribe outpatient Suboxone. -Encourage patient to followup with [facility] the local Suboxone providers. Reported history of hepatitis C, present on admission, ongoing: -Hepatitis panel ordered, confirms hepatitis C no other pathology noted. High risk sexual behavior, present on admission: -Patient's had multiple partners. They were also sharing needles. -No evidence of STD or HIV based on screening studies. Pain Evaluation: Adequate Pain Control Resuscitation Status: CPR: Attempt Resuscitation Time spent 30 minutes Vikram Toussaint DO Sep 25, 2016 11:32 Time spent 30 minutes Vikram Toussaint DO Sep 25, 2016 11:32
--- NOTE | 2016-09-25 15:03 | NUR ---
Pain Patient had complaints of 7/10 pain to right thigh. Patient was offered Tylenol, but patient requested Ibuprofen. MD notified and Ibuprofen 600mg PO was ordered and administered to Patient. Patient reassessed and stated Medication was helpful and patient decreased to 4/10.
[2016-09-25] MEDS: DAPTOmycin Inj 500 MG in 0.9% Sodium Chloride 50 ML IV SCH (17:01)
[2016-09-26] VITALS (10 sets, daily range): BP systolic 101–127; BP diastolic 51–74; PULSE 63–78; RESP 18; O2SAT 97–98
[2016-09-26] MEDS: 0.9% Sodium Chloride 1,000 ML IV SCH ×2 (00:49→08:08)
[2016-09-26 05:08] LABS: BASOPHILS % (AUTO) 0.5 % (0-3); EOSINOPHILS % (AUTO) 4.8 % (0-5); MONOCYTES % (AUTO) 5.7 % (4-12); Mean Corpuscular Volume 76.8 fL (81-100); NEUTROPHILS % (AUTO) 67.5 % (40-74); Platelet Count 372 bil/L (150-400)
--- NOTE | 2016-09-26 05:24 | NUR ---
Pain/Nausea Patient reports leg pain 7/10 achy in her right leg. She was medicated with Ibuprofen per request. Patient also reported nausea and was given 4mg of zofran. 30 minutes later patient sleeping. breathing nonlabored. appears comfortable. no s/s of withdrawal throughout the night. vitals stable. IVF infusing. dressings to left forearm and right thigh remain c/d/i.
[2016-09-26] MEDS: Buprenorphine 2 mg SL Tablet SL PRN (09:30)
--- NOTE | 2016-09-26 11:21 | PCM.PNMED ---
Subjective Date of Service Sep 26, 2016 Subjective Patient continues to feel improved. Appetite is good and energy level better, experiencing no symptoms of withdrawal on current dosage of Suboxone. She is Having no opiate cravings. She also denies any fever chills or sweats. She continued to deny palpitations or chest pains. Thigh pain as well though present has decreased. Exam Vital Signs Vital Sign - Last Date Time Temp Pulse Resp B/P Pulse Ox O2 Delivery O2 Flow Rate FiO2 09/26/16 10:54 37.0 73 18 120/74 98 Room Air Intake and Output 09/25/16 09/25/16 09/26/16 Cumulative From/Thru 15:00 23:00 07:00 09/23/16 15:44 - 09/26/16 06:12 Intake Total 2948 ml 1181 ml 9856 ml Output Total 600 ml 2025 ml 7075 ml Balance 2348 ml -844 ml 2781 ml Intake Oral 1902 ml 355 ml 4493 ml IV Total 1046 ml 826 ml 5363 ml Output Urine Total 600 ml 2025 ml 7075 ml # Bowel Movements 0 1 Exam General: Alert, Oriented X3, Cooperative, No acute Distress Eyes: PERRL, normal sized pupils Mouth: Mucous Membrane Moist/[place] Chest & Lungs: Clear to auscultation & percussion Cardiovascular: Regular Rate/Rhythm, No Murmurs/Rubs/Gallops Abdomen: Non-tender, Non-distended, No hepatosplenomegaly Neurological: Grossly Neurologically Intact, IVs and Medications Medications Reviewed: Medications were reviewed in detail Lab and Diagnostics Result Diagram: 09/26/16 0450 09/26/16 0450 Assessment & Plan This is a 45 year old female IV heroin user with history significant for hepatitis c and treated endocarditis with multiple sites of possible infection on her body including abscess. Her WBC on admit was 32.1 with left shift with heart rate of 115. . She does qualify for sepsis criteria. 1 Liter bolus NS given in ED. Sites of possible infection include left upper arm abscess. I&D performed on this abscess in ED on September 19. Right lower extremity abrasion with granulation tissue overlaying that has been non-healing for six months. As she is a IV heroin user need to rule out endocarditis and blood cultures have been drawn. We have admitted her for IV antibiotics and to rule out endocarditis. Sepsis, present on admission, ongoing: -WBC 32.1. Heart rate 115. Multiple potential sources of infection., now improving. -Continue Vancomycin discontinued with negative MRSA, however given concern for deep infection of thigh per ID recs, pt has been transitioned at the recommendation of infectious disease specialist to [facility]. -Blood cultures pending, as are outpatient records pertaining to previous blood and wound cultures. -TTE was not completed due to patient discomfort, but initial review did not seem to demonstrate evidence of valvular pathology. If blood cultures are positive or concern is anxiety may need to consider [facility]DEN in the future - Discontinue intravenous fluids given good by mouth intake Right lateral lower extremity abrasion, present on admission, ongoing: -Present for six months and nonhealing. -Wound care ordered. Left arm abscess, present on admission, stable: -Improved after I&D on 09/19. Was on Doxycycline outpatient. -Wound care ordered. Microcytic anemia, present on admission, ongoing: On admit: hgb 11.0 and MCV 76.0. - Unknown chronicity. Possibly anemia of chronic disease vs iron deficiency anemia. - Condition is stable - Iron studies suggestive of iron deficiency setting of chronic disease, given low iron-binding capacity in the setting of anemia and low iron levels. This may be the result of poor self-care given comorbid substance abuse. - We will continue to monitor with improved diet and lifestyle. Thrombocytosis, present on admission, ongoing: -Platelets on admit 504. -Likely reactive. -Continue to monitor. Elevated transaminases, present on admission, ongoing: -AST 101, ALT 93. Alk phos 229. -Likely secondary to hepatitis c. -Continue to monitor. -Consider ultrasound of abdomen in morning. -Hepatitis panel ordered, confirms hepatitis C but no other infectious liver disease is noted. - LFTs have since last. Elevated blood glucose, present on admission, ongoing: -Glucose of 118. -Fasting glucose in morning ordered. IV heroin abuse, present on admission, ongoing: -At onset of symptoms of withdraw Suboxone 16mg (two strips) was provided with good result - Now continue daily. -As hospitalist can only prescribe Suboxone in hospital when patient leaves Dr. Wong or Dr. Talbert in the ED should be contacted prescribe outpatient Suboxone. -Encourage patient to followup with [facility] the local Suboxone providers. Reported history of hepatitis C, present on admission, ongoing: -Hepatitis panel ordered, confirms hepatitis C no other pathology noted. - Given normalizing liver functions, treatment may be deferred to outpatient setting if needed. High risk sexual behavior, present on admission: -Patient's had multiple partners. They were also sharing needles. -No evidence of STD or HIV based on screening studies. Pain Evaluation: Adequate Pain Control Resuscitation Status: CPR: Attempt Resuscitation Time spent 30 minutes Vikram Toussaint DO Sep 26, 2016 11:21
[2016-09-26] MEDS ORDERED: Dalbavancin Inj 1,500 MG in Dextrose 5% 500 ML IV ONE (13:55)
[2016-09-26] MEDS ORDERED: Dextrose 5% 250 ML IV ONE (14:10)
--- NOTE | 2016-09-26 14:36 | PROG NOTE ---
[address] [address] PROGRESS NOTE PATIENT: KIRSTEN KAUFFMAN : 1970 MR#: [id number] ADMIT: 09/23/2016 JOB ID: [id number] DATE: 09/26/2016 REASON FOR FOLLOWUP: Left triceps and right thigh soft tissue infections in an IV drug user. INTERVAL HISTORY: The patient reports over the weekend, she has gradually felt better with no fevers, chills, or sweats but she is profoundly weak. When I ask her if she is well enough to be discharged, she says no because she is too tired and has basically been sleeping all day. Note that her left triceps, however, is gradually improving, as is her right thigh open wound. No significant cough, nausea, vomiting, diarrhea. PHYSICAL EXAMINATION: Reveals a comfortable woman who has been afebrile since admission. Temperature is now 37, pulse 73, respiratory rate 18, blood pressure 120/74. She is saturating well on room air. She is awake, smiling and comfortable. Oral cavity negative. No thrush or pharyngitis. The lungs are clear. Cardiac tones without new murmur. Abdomen benign. The left triceps abscess is packed but it actually seems to be shrinking in size and improving. The right lateral thigh, open, about 4 cm wound is shallow and without much in the way of surrounding inflammation, though it has not healed much either since I saw it earlier. LABORATORIES: Include white count 12,000, which is stable but a lot better than 32,000 when she came in. The diff is unremarkable. Creatinine 0.65, albumin 2.8. Serologic studies are negative except for hep C that is positive and micro studies include negative blood cultures, negative MRSA screen. IMAGING: Includes the x-ray of the femur, MRI of the femur that I had ordered looking for a sinus tract. It shows some cellulitis where the wound is but no osteomyelitis or sinus tract. IMPRESSION: This patient has both group A Strep and methicillin-resistant Staphylococcus aureus infection in her left triceps as determined by a culture done prior to this admission at [facility]. Her cultures here have been negative and the patient seems much improved. At this point, I think she could be discharged after a single dose of dalbavancin. RECOMMENDATIONS: 1. Will discontinue the daptomycin she is receiving as of today. 2. A single 1.5 g dose of dalbavancin will be given which should be sufficient to treat her left triceps and right lateral thigh infection. 3. It may be reasonable for the patient to follow up in the wound clinic for evaluation and further management of that right thigh lesion. 4. The patient could be discharged at any time from the ID point of view. She feels she is too weak to go today and so I leave this to the hospitalist, but ID will go ahead and sign off at this time. Thank you very much.
--- NOTE | 2016-09-26 14:42 | NUR ---
Dressing change Patient right thigh dressing was removed, cleansed with NS and Xeroform and Mepilex applied afterward to cover. Scant amount of drainage while cleaning leg, but remains painful during dressing change. Left arm dressing was removed and when removed oozed moderate off white fluid from wound. Wound cleansed with hydrogen peroxide using a Q-tip. Arm wound packed with Aquacel dressing and covered with gauze and taped in place. Arm wound was not as painful to patient today as it was yesterday during the dressing change.
[2016-09-26] MEDS: Ondansetron 2 mg/mL 2 mL Inj IVPUSH PRN (17:18)
--- NOTE | 2016-09-26 18:30 | NUR ---
Left hip/nausea Patient was complaining of severe nausea. 8mg Zofran was administered with no effect. When reassessing patient, she complained of left hip hurting. Upon assessment, Patient has large area about the size of hand on left posterior hip. MD was notified of Swollen area and nausea.
[2016-09-26] MEDS: Promethazine 12.5 mg/50 mL D5W IV PRN ×2 (19:21)
[2016-09-27] VITALS (11 sets, daily range): BP systolic 97–125; BP diastolic 52–88; PULSE 60–100; RESP 15–19; O2SAT 95–100
--- NOTE | 2016-09-27 05:29 | NUR ---
Uneventful Night pt has been able to sleep intermittently during the night. VSS, on RA. pt did have a slight fever at HS. IV patent when flushed with 10cc NS, denies discomfort at the site. c/o pain in left hip area, observed to be red, swollen and warm to the touch; Day RN reported that MD was aware- no new orders at this time. pt able to make needs known by call light use, placed within reach. hourly rounding in effect.
[2016-09-27 05:35] LABS: BASOPHILS % (AUTO) 0.4 % (0-3); EOSINOPHILS % (AUTO) 3.9 % (0-5); Mean Corpuscular Hemoglobin 24.1 pg (27.0-35.0); Mean Corpuscular Volume 76.6 fL (81-100); NEUTROPHILS % (AUTO) 71.8 % (40-74); Platelet Count 375 bil/L (150-400)
[2016-09-27] MEDS: Ondansetron 2 mg/mL 2 mL Inj IVPUSH PRN (06:22)
[2016-09-27] MEDS ORDERED: fentaNYL-PF 50 mCg/mL 2 mL Inj ONE (07:41)
[2016-09-27] MEDS ORDERED: MetoCLOpramide 5 mg/mL 2 mL Inj ONE (07:41)
[2016-09-27] MEDS ORDERED: Lidocaine PF 1% 30 mL Inj ONE (07:41)
[2016-09-27] MEDS ORDERED: Ondansetron 2 mg/mL 2 mL Inj ONE (07:41)
[2016-09-27] MEDS ORDERED: Phenylephrine/NS 100 mCg/mL 10 mL Syringe IVPUSH ONE (07:41)
[2016-09-27] MEDS: Promethazine 12.5 mg/50 mL D5W IV PRN ×2 (09:18)
--- NOTE | 2016-09-27 09:30 | NUR ---
Nausea Pt complains of nausea, retching in the room. Ice pack applied to back of neck. IV Phenregan given as ordered, with good results. Will continue to monitor.
[2016-09-27] MEDS: Buprenorphine 2 mg SL Tablet SL PRN (10:15)
--- NOTE | 2016-09-27 10:56 | PCM.PNMED ---
Subjective Date of Service Sep 27, 2016 Subjective Left hip pain is patient's major complaint today. Started yesterday evening still very severe this morning. It is warm to the touch and extremely painful. Better when lying in bed but any pressure elicits severe discomfort. Also notes sweats overnight and was reported to have fever 38.1 this morning Exam Vital Signs Vital Sign - Last Date Time Temp Pulse Resp B/P Pulse Ox O2 Delivery O2 Flow Rate FiO2 09/27/16 09:52 36.7 60 18 122/63 96 Room Air Intake and Output 09/26/16 09/26/16 09/27/16 Cumulative From/Thru 15:00 23:00 07:00 09/23/16 15:44 - 09/27/16 05:54 Intake Total 2242 ml 879 ml 85689 ml Output Total 2000 ml 2600 ml 23482 ml Balance 242 ml -1721 ml 1302 ml Intake Oral 1150 ml 809 ml 6452 ml IV Total 1092 ml 70 ml 6525 ml Output Urine Total 2000 ml 2600 ml 79657 ml # Bowel Movements 1 2 Exam General: Alert, Oriented X3, Cooperative, moderate Distress Eyes: PERRL, normal sized pupils Mouth: Mucous Membrane Moist/[place] Abdomen: Non-tender, Non-distended, No hepatosplenomegaly Neurological: Grossly Neurologically Intact, Dermatologic: There is a large approximately 4 cm raised subcutaneous mass, is warm to palpation and extremely tender on left thigh inferior to the iliac crest. Some erythema overlying tissue is additionally noted. Right thigh ulceration is stable resting clean bandages unchanged from previous appears well -healing. IVs and Medications Medications Reviewed: Medications were reviewed in detail Lab and Diagnostics Result Diagram: 09/27/1625 09/27/16 0525 Assessment & Plan This is a 45 year old female IV heroin user with history significant for hepatitis c and treated endocarditis with multiple sites of possible infection on her body including abscess. Her WBC on admit was 32.1 with left shift with heart rate of 115. . She does qualify for sepsis criteria. 1 Liter bolus NS given in ED. Sites of possible infection include left upper arm abscess. I&D performed on this abscess in ED on September 19. Right lower extremity abrasion with granulation tissue overlaying that has been non-healing for six months. As she is a IV heroin user need to rule out endocarditis and blood cultures have been drawn. We have admitted her for IV antibiotics and to rule out endocarditis. Sepsis, present on admission, ongoing: -WBC 32.1. Heart rate 115. Multiple potential sources of infection., now improving. - She was initially started on vancomycin on admission that was discontinued on negative MRSA, ceftriaxone was initially continue but then transitioned to Cubicin through concern for endocarditis. Is additionally was discontinued yesterday as cultures of the blood were negative as well, and ID was encouraged however with upper trending white blood cell count and relapse of fevers in addition to concern for abscess, ID will revisit antibiotic therapies shortly. -Blood cultures remain negative greater than 48 hours -TTE was not completed due to patient discomfort, but initial review did not seem to demonstrate evidence of valvular pathology. If blood cultures are positive or concern is anxiety may need to consider KAYDEN in the future - Discontinue intravenous fluids given good by mouth intake Right lateral lower extremity abrasion, present on admission, ongoing: -Present for six months and nonhealing. -Wound care ordered. Left arm abscess, present on admission, stable: -Improved after I&D on 09/19. Was on Doxycycline outpatient. -Wound care ordered. Left Hip Abscess: - Noticed morning the ultrasound examination. Appears to be actively infected process given patient's elevated temperature sweats and worsening pain - Gen. surgery will be consulted for expectant I&D Microcytic anemia, present on admission, ongoing: On admit: hgb 11.0 and MCV 76.0. - Unknown chronicity. Possibly anemia of chronic disease vs iron deficiency anemia. - Condition is stable - Iron studies suggestive of iron deficiency setting of chronic disease, given low iron-binding capacity in the setting of anemia and low iron levels. This may be the result of poor self-care given comorbid substance abuse. - We will continue to monitor with improved diet and lifestyle. Thrombocytosis, present on admission, ongoing: -Platelets on admit 504. -Likely reactive. -Continue to monitor. Elevated transaminases, present on admission, ongoing: -AST 101, ALT 93. Alk phos 229. -Likely secondary to hepatitis c. -Continue to monitor. -Consider ultrasound of abdomen in morning. -Hepatitis panel ordered, confirms hepatitis C but no other infectious liver disease is noted. - LFTs have since last. Elevated blood glucose, present on admission, ongoing: -Glucose of 118. -Fasting glucose in morning ordered. IV heroin abuse, present on admission, ongoing: -At onset of symptoms of withdraw Suboxone 16mg (two strips) was provided with good result - Now continue daily. -As hospitalist can only prescribe Suboxone in hospital when patient leaves Dr. Wong or Dr. Talbert in the ED should be contacted prescribe outpatient Suboxone. -Encourage patient to followup with [facility] the local Suboxone providers. Reported history of hepatitis C, present on admission, ongoing: -Hepatitis panel ordered, confirms hepatitis C no other pathology noted. - Given normalizing liver functions, treatment may be deferred to outpatient setting if needed. High risk sexual behavior, present on admission: -Patient's had multiple partners. They were also sharing needles. -No evidence of STD or HIV based on screening studies. Pain Evaluation: Pain not Controlled VTE Mechanical Devices: Anti-Embolic stockings Resuscitation Status: CPR: Attempt Resuscitation Time spent 30 minutes Vikram Toussaint DO Sep 27, 2016 10:56
--- NOTE | 2016-09-27 11:03 | DRSVH ---
PROCEDURE: US EXTREMITY SONOGRAM LIMITED ([id number]) INDICATIONS: hip pain w/ concern of abscess. TECHNIQUE: Real-time scanning was performed of the left hip, with image documentation. COMPARISON: None. FINDINGS: Complex, multiseptated subcutaneous mass is seen corresponding to the region of palpable ab normality measuring roughly 3.7 x 4.2 x 2.1 cm. Doppler assessment demonstrates mild peripheral and no internal flow. IMPRESSION: Complex, multiseptated subcutaneous mass present corresponding to the palpable abnormalit y. Findings may be related to underlying infection or possibly related to prior trauma although neop lasm would also be included in the differential. No drainable fluid collection is seen. If indicate d MRI could be performed for further assessment. Dictated by: Jeff ZEPEDA Interpreted: Yoel Pearl MD on 09/27/2016 at 10:59 Transcribed by: NAOMY on 09/27/2016 at 11:02 Approved by: Camacho Pearl M.D. on 09/27/2016 at 16:31
--- NOTE | 2016-09-27 11:24 | PROG NOTE ---
[address] [address] PROGRESS NOTE PATIENT: KIRSTEN KAUFFMAN : 1970 MR#: [id number] ADMIT: 09/23/2016 JOB ID: [id number] DATE: 09/27/2016 REASON FOR FOLLOW UP: Left hip abscess. INTERVAL HISTORY: Recall this is a 45-year-old woman, who was seen last week at the [facility] with a left triceps abscess. The culture there grew MRSA and group A strep. She was discharged to take oral antibiotics but never picked them up at the pharmacy. She subsequently presented here with more symptomatology, both in her left triceps as well as the right lateral thigh where she has a more chronic wound. She was placed on broad-spectrum antibiotics with initially daptomycin and seemed to do well. Yesterday when I saw her, I thought she was about ready to go and so we ordered 1.5 g one time dose of dalbavancin for discharge, as both the left triceps and right thigh were looking better. We also had obtained an MRI scan of the right leg that showed there was no sinus tract or osteo. After I saw her yesterday morning, the patient deteriorated and she developed subjective fevers, which later became objective fevers with a temp of 38 degrees, as well as generalized malaise and some new tenderness over her left lateral upper thigh/hip area. This is an area of exquisite tenderness. She has had many incision and drainage procedures over this part of the body after injections of heroin produced many soft tissue infections. She tells me she has not injected within this area for a while, but when pressed as to what a while was, she thought maybe a week. This morning, the patient says she still has subjective fevers, as well as increasing pain over this left lateral upper thigh area. Her discharge has obviously been canceled and she is awaiting an ultrasound of this area that has already been ordered. PHYSICAL EXAMINATION: Reveals a woman who was febrile to 38 last night. That was her first temperature of her entire five days in the hospital. She is currently 36.7, pulse 60, respiratory rate 18, blood pressure 122/63. She is saturating well on room air. She is in no distress. Her eyes are without conjunctivitis. The oral cavity is benign. Her lungs are quite clear. Cardiac tones without new murmur. The left triceps abscess area is almost healed. There is still a small drain in place. There is a small wick in the wound there. The right lateral thigh area is macrina, looking less infected. Over the left lateral upper thigh, though, and actually the lateral aspect of the buttock really, there is scarring from multiple prior surgeries to drain prior abscess as well as diffuse erythema, warmth and extreme tenderness, which is new over the last day or two. The patient can move her left hip without any problem and I do not suspect at all septic hip. LABORATORIES: Include white count that had been coming down, reached 12,000 yesterday, has now jumped back to 16,000. Hematocrit 32, platelets 375. Creatinine 0.86. LFTs are normal. Hep C is positive antibody study. Blood cultures negative x3 sets done in the ED, September 23. MRSA screen negative. Femur MRI showed no osteo, and that is on the right side. IMPRESSION: This is a confusing case which I have discussed with the hospitalist this morning. It appeared the patient had two infections, her left triceps area and the right lateral thigh, and these are both improving. We have cultures from [place] showing at least one of these infections is methicillin-resistant Staphylococcus aureus (MRSA), plus group A strep which makes sense. The patient has been receiving daptomycin with significant improvement and was ready to go yesterday morning, but then developed fever as well as malaise, and tenderness over her left lateral upper thigh/buttock. This area now appears to be once again infected and it is clear from the surgical scar pattern there has been many prior infections in this region. The patient admits that she has been injecting drugs in that area as recently as a week ago. What is thought is that we have had the patient on very broad-spectrum gram-positive coverage, now in her 5th day in the hospital. She has just now evolved this new infection. This raises the question about use of drugs here in the hospital, but when asked, the patient denies that. RECOMMENDATIONS: 1. She already has a dalbavancin on board, so I would not armendariz to add additional antibiotics at this point in this nontoxic patient. 2. Ultrasound is being done now. 3. General Surgery should be involved next to drain the abscess and get us some good quality cultures with which to better define our antibiotic treatment. 4. ID will continue to follow this complex patient with you.
--- NOTE | 2016-09-27 11:50 | NUR ---
Pain Pt crying out in pain, related to USD being completed on L Hip, IV Tordolol given with minimal decrease in pain level. Pt declines ice pack at this time. NPO for OR as pt to have I&D completed on L hip access. Encouraged to contact staff for any additional needs. Call light in reach, will continue to monitor
--- NOTE | 2016-09-27 15:48 | PCM.HPANE ---
Patient Data Date of Service: Sep 27, 2016 Surgeon Admitting Provider:Jg Gunn MD Attending Provider:Jg Gunn MD Primary Care Physician:Nopcp Other Provider: Reason for Visit Fever/Ivda Infective Endocarditis Ht/WT & BMI Height (Feet): 5 Height (Inches): 5.00 Weight (Kilograms): 62.700 Body Mass Index 23.03 Allergies Coded Allergies: Sulfa (Sulfonamide Antibiotics) (Verified Allergy, Severe, Rash,Itching,, 09/23/16) hydrocodone (Verified Allergy, Severe, Anaphylaxis, 09/23/16) ketamine (Verified Allergy, Severe, Swelling, big lips, 09/23/16) clonidine (Verified Adverse Reaction, Severe, Extrapyramidal Symptoms, 09/23) Past Anesthesia History Anesthesia History: Positive for:: Anesthesia Reactions (ketamine caused significant bloating), Denies:: Abnormal Airway, Difficult Intubation, Fam Anesthesia Reaction, Fam Malignant Hypertherm, Malignant Hyperthermia Diabetes History Hx Diabetes?: No MRSA MRSA: Yes Medications Hypertension Medication: No Home Meds Incl Beta Umair: No No Active Prescriptions or Reported Meds History History of ENT Problems?: No HEENT History: Denies:: Abnormal Airway Difficult Intubation TMJ Denture Type: None Teeth Condition: Within Normal Limits Hx of Heart Problems?: No Cardiovascular History: Denies:: Cardiac Surgery Chest Pain Congestive Heart Failure Edema Heart Murmur Hypertension Irregular Heartbeat Pacemaker Thrombophlebitis Hx of Respiratory Problem?: Yes Respiratory History: Positive for:: Asthma (mainly needs rescue inhaler in winter months) Dyspnea (asthma attack 04/2016) Pneumonia (04/2015) Denies:: COPD Chest Surgery Emphysema Hemoptysis Tuberculosis Hx Neurologic Problems?: Yes Neurological History: Positive for:: Headaches Denies:: Alzheimer's Disease CVA Dementia Dizziness Parkinson's Disease Seizures Hx of GI Problems?: Yes Gastrointestinal History: Positive for:: Hepatitis (Chronic hep C) Denies:: Gastroesphageal Reflux Heartburn Hx of Problems?: Yes Genitourinary History: Positive for:: Kidney Stones Urinary Tract Infection Female Hx: Denies:: Currently Hx Musculoskeletal Problems?: No Hx of Psycho/Social Problems?: Yes Psycho Social History: Positive for:: Anxiety Hx Surgeries?: Yes (surgical drainage of abcesses, cystocyele, choley, hysterectomy ) Hx Any Other Health Problems?: Yes Other History: Positive for:: Hospitalization Denies:: Cancer Thyroid Disease History Blood Transfusions: Positive for:: Accept Blood Products? Denies:: Blood Transfusions Hx Diabetes: No Hx Alcohol Use: NoHx Substance Use: Yes (IV heroin daily, snorts meth infrequently.) Smoking Status: Current Every Day Smoker Have You Smoked inLast 12 mo: YesApprox How Many Cigarettes/day: 10 Stop/Bang Treated for Sleep Apnea?: No Do You Have a CPAP Machine?: No S-Snoring: Do You Snore Loudly: No T-Tired: feel tired, fatigued: Yes O-Obsered: Observed not breath: No P-Blood Pressure: treated: No B- Body Mass Index > 35 kg/m2: No A- Age over 50: No N- Neck Large Circumference: No G- Gender Male: No NASH Total Score: 1 NASH Risk Assessment: Low Risk, <3 Yes Risk Assessment Category Category 1A: Patient has history of documented sleep apnea, and HAS NOT received any narcotic, sedative or anesthesia administration during this stay. Category 1B: Patient has history of documented sleep apnea, and HAS received any narcotic , sedative or anesthesia administration during this stay Category 2: Patient has SUSPECTED Obstructive Sleep Apnea, and HAS received any narcotic , sedative or anesthesia administration during this stay. Category 3: Patient has SUSPECTED Obstructive Sleep Apnea and HAS NOT received narcotic, sedative or anesthesia administration during this stay. Category 4: Outpatient in Procedural Areas with known sleep apnea or who screen positive for High Risk via the STOP/BANG questionnaire. Exam Exam Vital Signs Vital Signs Date Time Temp Pulse Resp B/P Pulse Ox O2 Delivery O2 Flow Rate FiO2 09/27/16 13:21 36.7 65 18 111/52 97 Room Air 09/27/16 10:50 70 09/27/16 09:52 36.7 60 18 122/63 96 Room Air General Appearance: Alert, Oriented X3, Cooperative, Mild Distress HEENT/AIRWAY: MP 1, Neck Movement, Mouth Opening (3 fb), Other (tmd 3 fb) Lungs: Clear to Auscultation, Normal Air Movement Heart: Regular Rate/Rhythm, No Murmurs/Rubs/Gallops Meds/Labs/Diagnostics Labs Test 09/23/16 17:20 09/23/16 18:05 09/23/16 18:39 09/23/16 22:34 Erythrocyte Sedimentation Rate 80mm/hr (0-32) Magnesium Level 2.1mg/dL (1.6-2.6) Troponin T < 0.010ug/L (0.0-0.011) C-Reactive Protein 20.3mg/dL (0.0-0.5) Lactic Acid Level 0.7mmol/L (0.4-2.0) Urine Color Yellow (YELLOW) Urine Appearance Clear (CLEAR,HAZY) Urine pH 5.0 (5.0-8.0) Urine Specific [place] 1.030 (1.003-1.035) Urine Protein 30mg/dL (NEG,TRACE) Urine Glucose (UA) Negativemg/dL (NEGATIVE) Urine Ketones Negativemg/dL (NEGATIVE) Urine Occult Blood Negative (NEGATIVE) Urine Nitrite Negative (NEGATIVE) Urine Bilirubin Negative (NEGATIVE) Urine Urobilinogen Normalmg/dL (NORMAL) Urine Leukocyte Esterase Negative (NEGATIVE) Urine RBC 0-2/hpf (0-2) Urine WBC 0-5/hpf (0-5) Urine Epithelial Cells Moderate/hpf (NONE-MOD) Urine Crystals None seen (NONE SEEN) Urine Bacteria Few/hpf (NONE-FEW) Urine Hyaline Casts None/lpf (NONE) Urine Granular Casts None seen (NONE SEEN) Urine Waxy Casts None seen (NONE SEEN) Urine Red Blood Cell Casts None seen (NONE SEEN) Urine White Blood Cell Casts None seen (NONE SEEN) Urine Mucus Present (None Seen) Urine Trichomonas None seen (NONE SEEN) Urine Yeast None (NONE SEEN) Urinalysis Comment None Urine Culture Reflexed Not indicated Chlamydia trachomatis DNA (BASSAM) Negative (Negative) Neisseria gonorrhoeae DNA (BASSAM) Negative (Negative) Iron Level 23ug/dL (35-150) Total Iron Binding Capacity 246ug/dL (250-450) Percent Iron Saturation 9%sat (15-50) Unsaturated Iron Binding 222.6ug/dL Ferritin 108ng/mL (13-150) Rapid Plasma Reagin Non reactive (Non Reactive) Hepatitis A IgM Antibody Negative (Negative) Hepatitis B Surface Antigen Negative (Negative) Hepatitis B Core IgM Antibody Negative (Negative) Hepatitis C Antibody >11.0s/co ratio Hepatitis C Antibody Comment Comment (.) Hepatitis C Comment . HIV (1&2) Ag and Ab, 4th Generation Non reactive (Non Reactive) Test 09/25/16 07:35 09/27/16 05:25 Direct Bilirubin 0.2mg/dL (0.0-0.3) Vancomycin Level Trough 5.2mcg/mL White Blood Count 15.7th/mm3 (3.8-10.1) Red Blood Count 4.27mil/mm3 (3.90-5.20) Hemoglobin 10.3g/dL (12.0-15.6) Hematocrit 32.7% (35.0-46.0) Mean Corpuscular Volume 76.6fL (81-100) Mean Corpuscular Hemoglobin 24.1pg (27.0-35.0) Mean Corpuscular Hemoglobin Concent 31.5% (32.0-37.0) Red Cell Distribution Width 14.5% (12.3-15.4) Platelet Count 375bil/L (150-400) Neutrophils (%) (Auto) 71.8% (40-74) Lymphocytes (%) (Auto) 16.5% (14-46) Monocytes (%) (Auto) 5.0% (4-12) Eosinophils (%) (Auto) 3.9% (0-5) Basophils (%) (Auto) 0.4% (0-3) Sodium Level 138mEq/L (134-144) Potassium Level 4.7mEq/L (3.5-5.2) Chloride Level 100mEq/L (97-108) Carbon Dioxide Level 24mmol/L (18-29) Blood Urea Nitrogen 13mg/dL (6-24) Creatinine 0.86mg/dL (0.57-1.00) Estimat Glomerular Filtration Rate 102mL/min (>59) Glucose Level 106mg/dL (60-99) Calcium Level 8.7mg/dL (8.5-10.1) Total Bilirubin 0.2mg/dL (0.0-1.2) Aspartate Amino Transf (AST/SGOT) 21U/L (0-50) Alanine Aminotransferase (ALT/SGPT) 24U/L (0-32) Alkaline Phosphatase 120U/L (25-150) Total Protein 6.9g/dL (6.4-8.4) Albumin 2.9g/dL (3.4-5.0) Plan Impression Patient chart reviewed, patient interviewed and anesthestic plan with risks, benefits, and alternatives discussed, and informed consent obtained. NPO per Anesth. Guidelines: Yes ASA Physical Status: ASA3 Severe Disease Anesthetic Plan: GA Bene/Risks/Altern/Consents: Yes HP Complete Prior to Induction: Yes Sebas Cervantes MD Sep 27, 2016 15:48
--- NOTE | 2016-09-27 16:10 | NUR ---
Off the unit/transfer Pt taken off the unit to OR for I&D of L hip abscess. Pt declined offer of Tylenol for pain prior to leaving [facility]. VSS. No complains of increased nausea. Pt voided prior to leaving. Able to transfer self to [facility] from bed. Pt to be transferred to [facility] for recovery Rm [id number]. Report called to DILCIA Hutchinson, Belongings gathered by PROCESSING ENGINEER and transferred to new room.
[2016-09-27] MEDS ORDERED: Lactated Ringer's 1,000 ML IV SCH (16:24)
[2016-09-27] MEDS ORDERED: Lactated Ringer's 500 ML IV PRN (16:24)
[2016-09-27] MEDS ORDERED: fentaNYL-PF 50 mCg/mL 2 mL Inj IVPUSH PRN (16:25)
[2016-09-27] MEDS ORDERED: MetoCLOpramide 5 mg/mL 2 mL Inj IVPUSH PRN (16:25)
[2016-09-27] MEDS ORDERED: Ondansetron 2 mg/mL 2 mL Inj IVPUSH PRN (16:25)
[2016-09-27] MEDS ORDERED: EPHEDrine Sulfate 50 mg/mL Inj IVPUSH PRN (16:25)
[2016-09-27] MEDS ORDERED: Dexamethasone 4 mg/mL Inj IVPUSH PRN (16:25)
[2016-09-27] MEDS ORDERED: Phenylephrine 10,000 mCg/mL Inj IVPUSH PRN (16:25)
[2016-09-27] MEDS ORDERED: HYDROmorphone 1 mg/mL Inj IVPUSH PRN (16:25)
[2016-09-27] MEDS ORDERED: Lactated Ringer's 1,000 ML IV ONE (16:35)
[2016-09-27] MEDS ORDERED: Bupivacaine-MPF 0.25%/EPI 30 mL Inj INFILTRATE ONE (16:36)
--- NOTE | 2016-09-27 16:55 | PCM.ANEP1 ---
Post Anesthesia PACU Phase 1 Assessment Date of Service: Sep 27, 2016 Vital Signs Vital Signs Date Time Temp Pulse Resp B/P Pulse Ox O2 Delivery O2 Flow Rate FiO2 09/27/16 16:49 70 15 123/88 100 Nasal Cannula 2 09/27/16 16:36 36.8 73 19 124/75 100 Nasal Cannula 2 09/27/16 13:21 36.7 65 18 111/52 97 Room Air 09/27/16 10:50 70 09/27/16 09:52 36.7 60 18 122/63 96 Room Air Anesthetic Administered: GA Level of Alertness: Sleepy, easy to arouse GASCA's with Equal Strength: Yes Pain: Yes (report to RN) Pain Scale Score: 7 Nausea or Vomiting: No CV Function & Hydration Stable: Yes Airway Device: none Oxygen Delivery: Nasal Cannula Lungs: Clear to Auscultation, Normal Air Movement Dermatome Level: Full Sensation PACU Phase 2 Assessment Complications: No Follow up Care: No Patient Instructions Provided: N/A Sebas Cervantes MD Sep 27, 2016 16:55
--- NOTE | 2016-09-27 18:03 | CONS ---
[address] [address] CONSULTATION REPORT PATIENT: KIRSTEN KAUFFMAN : 1970 MR#: [id number] ADMIT: 09/23/2016 JOB ID: [id number] DATE OF SERVICE: 09/27/2016 CHIEF COMPLAINT/IDENTIFICATION: Dr. Toussaint of the hospitalist service has asked me to consult on this 45-year-old woman with a new left hip abscess. HISTORY OF PRESENT ILLNESS: The patient has been in the hospital since the , admitted with concerns for soft tissue infection and concern regarding possible endocarditis. She has been seen by Dr. Devine of Infectious Disease. She has been on therapeutic antibiotics, and there was a plan to discharge her today with dalbavancin. She began complaining of left hip pain. She has been in the hospital with a chronically draining infection on her triceps area and what has been called atypical cellulitis of the right lateral thigh. She notes that her left hip just began hurting today. She has had an ultrasound which suggested she has a complex abscess in the left hip. PAST MEDICAL HISTORY: Per previous admission history and physical and consultation notes. MEDICATIONS: On therapeutic antibiotics. SOCIAL HISTORY: The patient does use intravenous heroin. She tells me that she is on Suboxone now and has outpatient drug rehabilitation program lined up upon discharge. REVIEW OF SYSTEMS: Per admission history and physical examination. PHYSICAL EXAMINATION: Directed examination reveals a slender woman looking uncomfortable. Her temperature is 36.7, pulse is in the 60s and 70s. Blood pressure is within normal limits. Directed examination of her left hip reveals an area of fluctuance and tenderness, and not too much cellulitis. On her right lateral thigh, she does not have any real cellulitis or infection but what appears to have been an old abscess cavity that has filled in with granulation tissue that is without signs of obvious infection. Left triceps area is not examined as it is dressed. LABORATORY DATA: White count was 32,000 on admission but has come down to 12.2 yesterday, is up to 15.7 today. IMAGING: The pertinent imaging is of an ultrasound of the left hip. Unfortunately, films are not available, but they describe a 3.7 x 4.2 x 2 cm complex subcutaneous multiseptated abscess. IMPRESSION/PLAN: Clinical left hip abscess. I have recommended incision and drainage. The patient ate breakfast at 8 this morning and we will therefore make her n.p.o. now, proceed with surgery in the late afternoon.
--- NOTE | 2016-09-27 19:00 | NUR ---
POST-OP Received from PACU via a gurney. Transferred independently to the bed. Patient rated her pain as 8/10. Toradol IVP administered. Denies nausea. Tolerating PO liquids and her diet well. Denies nausea. No emesis noted. Patient is on O2 at 2 LPM via NC. Denies SOB. Dressing in her L hip is CDI. Dressing changed in her NACHO arm and R hip dressing as ordered. Oriented to room and call light.
[2016-09-28] VITALS (7 sets, daily range): BP systolic 99–129; BP diastolic 54–79; PULSE 65–78; RESP 16; O2SAT 98–99
--- NOTE | 2016-09-28 00:15 | OP ---
[address] [address] OPERATIVE REPORT PATIENT: KIRSTEN KAUFFMAN : 1970 MR#: [id number] ADMIT: 09/23/2016 JOB ID: [id number] DATE OF SURGERY: 09/27/2016 PREOPERATIVE DIAGNOSIS(ES): Left hip abscess. POSTOPERATIVE DIAGNOSIS(ES): Left hip abscess x2. PROCEDURE: Incision and drainage of deep left hip abscess x2. SURGEON: Ryan Melgoza MD INDICATIONS: A 45-year-old woman who was thought to have infection with an elevated leukocytosis secondary to old left shoulder abscess. However, this morning, her white count gerald a bit more, and she began complaining of left hip pain. She has an area of induration and fluctuance in the left hip that is confirmed by ultrasound. Is brought to the operating room. FINDINGS: The patient had two fairly deep left hip abscesses in an area where she has had previous abscesses. I suspect that this was the cause of her initial leukocytosis to 32,000. DESCRIPTION OF PROCEDURE: The patient was brought to the operative room. SCOAP protocol was followed. Surgical time-out was performed. She was on therapeutic antibiotics. After prepping and draping the left hip in a sterile fashion, I aspirated pus from the upper area of fluctuance. This was sent off for Gram stain and culture. I made an incision and carried this down into the deeper soft tissues. I explored the abscess cavity. I opened up the incision further to not leave too much undermined tissue. However, this did not seem to communicate with another area of fluctuance down below, so I made another parallel incision approximately 3 cm away and then encountered another abscess cavity that was even larger and deeper. I extended this incision and opened up the abscess cavity to its full extent, breaking down all loculations. Surprisingly, these two cavities did not communicate despite my best efforts at probing into them with a finger. I was satisfied that the two cavities did not communicate, I elected to simply irrigate them out until clean, checked for hemostasis and then packed them with a single Kerlix going in both directions. Dressing was applied. The patient was transferred to the recovery room.
--- NOTE | 2016-09-28 04:36 | NUR ---
pain pt has received 30mg of IV toradol for pain this shift. she reports a burning pain in her L hip 8/10. the IV toradol brings the pain down to a 5/10. pt dressing has minimal amount of serous sanguineous drainage. she has denied N/V. tolerating general diet. VSS and afebrile. pt has been pleasant and cooperative with care. care continues.
[2016-09-28 06:04] LABS: BASOPHILS % (AUTO) 0.3 % (0-3); EOSINOPHILS % (AUTO) 4.2 % (0-5); MONOCYTES % (AUTO) 5.5 % (4-12); Mean Corpuscular Volume 78.4 fL (81-100); NEUTROPHILS % (AUTO) 68.8 % (40-74); Platelet Count 375 bil/L (150-400)
[2016-09-28] MEDS: Ondansetron 2 mg/mL 2 mL Inj IVPUSH PRN ×2 (07:49→21:37)
--- NOTE | 2016-09-28 07:49 | NUR ---
Nausea Patient reported nausea. 8mg of ondansetron given. Reported slight increase in pain. Next dose of Toradol at 1000. Patient repositions self for comfort. Call light and tray table within reach. Will continue to monitor patient hourly.
--- NOTE | 2016-09-28 09:20 | NUR ---
[facility] Signed @ 850AM
[2016-09-28] MEDS: Buprenorphine 2 mg SL Tablet SL PRN (09:54)
--- NOTE | 2016-09-28 11:14 | PROG NOTE ---
[address] [address] PROGRESS NOTE PATIENT: KIRSTEN KAUFFMAN : 1970 MR#: [id number] ADMIT: 09/23/2016 JOB ID: [id number] DATE: 09/28/2016 REASON FOR FOLLOWUP: Multiple soft tissue abscesses related to injection drug use. INTERVAL HISTORY: Yesterday, as we discussed, it was discovered the patient had large abscesses along her left lower flank. The patient insisted these were not present on admission, and certainly they were missed by all examiners by myself if they were, but the depth and extent of these abscesses that was found on yesterday's I and D suggest they had indeed been there for a while. The patient reports considerable postoperative pain at the site of yesterday's I and D, but otherwise no fevers, chills or sweats. She does not have any cough, shortness of breath, chest pain or GI symptoms. LABORATORIES: Include a white count which has dropped today to 10,800, with a normal diff. Creatinine is 0.81. LFTs are normal. Hep C is positive. HIV is negative. Blood cultures negative. MRSA screen negative. Yesterday's I and D showed many polys, many gram-positive cocci, and some gram variable rods. I have carefully reviewed Dr. Melgoza's surgical report, and was impressed by the severity and depth of the abscesses he cleaned out. IMPRESSION: This is a complicated case of a younger woman who is an injection drug user. She has abscesses in her left upper extremity which is resolving as well as a chronic wound over her right lateral thigh which seemingly during this admission was discovered. She had large left flank abscesses x2 which were drained yesterday in the operating room. RECOMMENDATIONS: 1. The patient has dalbavancin on board. 2. The appearance of the gram variable rods in the abscess raises the possibility of anaerobes, and so we are going to add some ertapenem while we await the final culture reports. No additional Staph or strep therapy is needed really because of the dalbavancin which, of course, remains in her blood stream. 3. Id will continue to follow this patient with you.
--- NOTE | 2016-09-28 11:32 | NUR ---
Scheduled hospital [facility]. Tuesday check in at 215PM for 230PM appointment with Updated JANITORIAL CLEANER
[2016-09-28] MEDS ORDERED: 0.9% Sodium Chloride 250 ML ONE (11:41)
[2016-09-28] MEDS: Ertapenem Inj 1,000 MG in 0.9% Sodium Chloride 50 ML IV SCH (11:52)
--- NOTE | 2016-09-28 11:58 | PCM.PNMED ---
Subjective Date of Service Sep 28, 2016 Subjective afebrile.continues to have pain at left hip I&D site Exam Vital Signs Vital Sign - Last Date Time Temp Pulse Resp B/P Pulse Ox O2 Delivery O2 Flow Rate FiO2 09/28/16 10:18 65 09/28/16 08:17 36.6 16 122/79 99 Room Air 09/27/16 17:24 1.50 Intake and Output 09/27/16 09/27/16 09/28/16 Cumulative From/Thru 15:00 23:00 07:00 09/23/16 15:44 - 09/28/16 05:37 Intake Total 936 ml 336 ml 51315 ml Output Total 600 ml 550 ml 05211 ml Balance 336 ml -214 ml 1424 ml Intake Oral 636 ml 336 ml 7424 ml IV Total 300 ml 6825 ml Output Urine Total 600 ml 550 ml 86690 ml # Bowel Movements 0 0 2 Exam General: Alert, Oriented X3, Cooperative, moderate Distress Eyes: PERRL, normal sized pupils Mouth: Mucous Membrane Moist/[place] clear chest no murmur Abdomen: Non-tender, Non-distended, No hepatosplenomegaly Neurological: Grossly Neurologically Intact, SHANEKA:left thigh / hip abscess site s/p I&D .cleanly dressed .left arm recent I&D site cleanly dressed IVs and Medications Medications Reviewed: Medications were reviewed in detail Lab and Diagnostics Result Diagram: 09/28/16 0545 09/28/16 0545 X-Rays, CTs and MRIs PROCEDURE: US EXTREMITY SONOGRAM LIMITED ([id number]) INDICATIONS: hip pain w/ concern of abscess FINDINGS: Complex, multiseptated subcutaneous mass is seen corresponding to the region of palpable abnormality measuring roughly 3.7 x 4.2 x 2.1 cm. Doppler assessment demonstrates mild peripheral and no internal flow. IMPRESSION: Complex, multiseptated subcutaneous mass present corresponding to the palpable abnormality. Findings may be related to underlying infection or possibly related to prior trauma although neoplasm would also be included in the differential. No drainable fluid collection is seen. If indicated MRI could be performed for further assessment. Dictated by: Jeff ZEPEDA Interpreted: Yoel Pearl MD on 09/27/2016 at 10: 59 PROCEDURE: MRI FEMUR RIGHT WITH AND WITHOUT CONTRAST ([id number]) INDICATIONS: Persistent right lat thigh abscess in IVDU-? sinus tra IMPRESSION: 1. Cutaneous thickening with T2 increased signal and enhancement consistent with cellulitis. No fluid collection is present. 2. No evidence of osteomyelitis. 3. Bilateral enlarged inguinal lymph nodes, most likely reactive. Dictated by: Erika Park M.D. on 09/24/2016 at 20:48 Additional Diagnostics DATE OF SURGERY: 09/27/2016 PREOPERATIVE DIAGNOSIS(ES): Left hip abscess. POSTOPERATIVE DIAGNOSIS(ES): Left hip abscess x2. PROCEDURE: Incision and drainage of deep left hip abscess x2. SURGEON: Ryan Melgoza MD INDICATIONS: A 45-year-old woman who was thought to have infection with an elevated leukocytosis secondary to old left shoulder abscess. However, this morning, her white count gerald a bit more, and she began complaining of left hip pain. She has an area of induration and fluctuance in the left hip that is confirmed by ultrasound. Is brought to the operating room. FINDINGS: The patient had two fairly deep left hip abscesses in an area where she has had previous abscesses. I suspect that this was the cause of her initial leukocytosis to 32,000. Assessment & Plan This is a 45 year old female IV heroin user with history significant for hepatitis c and treated endocarditis with multiple sites of possible infection on her body including abscess. Her WBC on admit was 32.1 with left shift with heart rate of 115. . She does qualify for sepsis criteria. 1 Liter bolus NS given in ED. Sites of possible infection include left upper arm abscess. I&D performed on this abscess in ED on September 19. Right lower extremity abrasion with granulation tissue overlaying that has been non-healing for six months. As she is a IV heroin user need to rule out endocarditis and blood cultures have been drawn. We have admitted her for IV antibiotics and to rule out endocarditis. # Sepsis due to left hip abscess , present on admission, ongoing: -Initial WBC 32.1. Heart rate 115. Multiple potential sources of infection., now improving. - She was initially started on vancomycin on admission that was discontinued on negative MRSA, ceftriaxone was initially continued but then transitioned to Cubicin through concern for endocarditis. received dalbavancin 1.5g on 09/26/16 .PERRY Devine added ertapenem on 09/28 due to gram variable rods to cover anaerobs .final culture result pending -Blood cultures remain negative -TTE was not completed due to patient discomfort, but initial review did not seem to demonstrate evidence of valvular pathology. If blood cultures are positive or concern is anxiety may need to consider KAYDEN in the future - Discontinue intravenous fluids given good by mouth intake # Left Hip Abscess: likely poa but noted on 09/27 - s/p I&D on 09/27/16 -wound care consult -culture ,gram positive cocci and gram variable rods -received dalbavancin 1.5g on 09/26/[address] Devine added ertapenem on 09/28 due to gram variable rods to cover anaerobs .final culture result pending # Right lateral lower extremity abrasion, present on admission, ongoing: -Present for six months and nonhealing. -Wound care ordered. # Recent Left arm abscess, present on admission, stable: -Improved after I&D on 09/19. Was on Doxycycline outpatient. -Wound care ordered. # Microcytic anemia, present on admission, ongoing: On admit: hgb 11.0 and MCV 76.0. - Unknown chronicity. Possibly anemia of chronic disease vs iron deficiency anemia. - Condition is stable - Iron studies suggestive of iron deficiency setting of chronic disease, given low iron-binding capacity in the setting of anemia and low iron levels. This may be the result of poor self-care given comorbid substance abuse. - We will continue to monitor with improved diet and lifestyle. # Thrombocytosis, present on admission, ongoing: -Platelets on admit 504. -Likely reactive. -Continue to monitor. # Elevated transaminases, present on admission, ongoing: -AST 101, ALT 93. Alk phos 229. -Likely secondary to hepatitis c. -Continue to monitor. -Hepatitis panel ordered, confirms hepatitis C but no other infectious liver disease is noted. # IV heroin abuse, present on admission, ongoing: -At onset of symptoms of withdraw Suboxone 16mg (two strips) was provided with good result - Now continue daily. -As hospitalist can only prescribe Suboxone in hospital when patient leaves Dr. Wong or Dr. Talbert in the ED should be contacted prescribe outpatient Suboxone. -Encourage patient to followup with [facility] the local Suboxone providers. # Reported history of hepatitis C, present on admission, ongoing: -Hepatitis panel ordered, confirms hepatitis C no other pathology noted. - Given normalizing liver functions, treatment may be deferred to outpatient setting if needed. # High risk sexual behavior, present on admission: -Patient's had multiple partners. They were also sharing needles. -No evidence of STD or HIV based on screening studies. disposition:discharge in 2-3 days VTE Mechanical Devices: Anti-Embolic stockings Resuscitation Status: CPR: Attempt Resuscitation Rock Bravo MD Sep 28, 2016 11:58
--- NOTE | 2016-09-28 13:44 | PROG NOTE ---
[address] [address] PROGRESS NOTE PATIENT: KIRSTEN KAUFFMAN : 1970 MR#: [id number] ADMIT: 09/23/2016 JOB ID: [id number] DATE: 09/28/2016 Seen postop day one incision and drainage of left hip abscess x2. She has been afebrile, stable vital signs. I have examined her, just as she was getting ready to go into the shower, and we took down her dressing. It was too painful for her to remove the packing and she will do that in the shower today. The wound edges were without cellulitis, without ongoing infection. As well, I had a chance to look at her right leg lesion which is stable, though had some bleeding from the granulation tissue that was abraded and her left arm abscess that has a very small incision but does not require any further drainage at this point. LABORATORY DATA: Her white count is down to 10, hematocrit is 33.7. Microbiology: Gram stain demonstrated gram-positive cocci and Gram variable rods, and I would note that this specimen was aspirated from her wound so was not contaminated. IMPRESSION AND PLAN: Doing well after drainage of a multi-organism infected left hip abscess. Pain control is going to be a problem for her. She will get in the shower now and remove the packing. Wound care is scheduled to see her right after that. General Surgery will follow along.
[2016-09-28] MEDS: Promethazine 12.5 mg/50 mL D5W IV PRN ×2 (13:54)
--- NOTE | 2016-09-28 17:01 | NUR ---
Wound Note Patient seen at bedside for wound evaluation and care. Patient seen post operatively, now has 2 left thigh wounds after abscess I&D by Dr Melgoza on 09/27. L lateral thigh open incisions, both are 6 cms in length and 1 cm in width with depths of 2 cms each after packing removal. Wounds irrigated with saline, NPWT was applied with white foam deeply, 125 mmhg continuous pressure, a good seal was attained. Authorization for home going unit will be sought, dressing to be changed Q48-72 hrs. Right lateral thigh was cleaned with saline and redressed with mepilex adhesive foam over xeroform, can be changed Q48-72 hrs. Left lateral deltoid wound cleaned with saline then packed loosely with 1/4 " iodoform packing strip, conform wrap and surgilast, can be changed daily by nursing.
--- NOTE | 2016-09-28 21:30 | NUR ---
Nausea/Insomnia Pt c/o nausea and insomnia. Pt given Zofran 8mg IVP and Melatonin 1mg . Care ongoing.
[2016-09-29 04:23] VITALS: BP 95/60; PULSE 65; RESP 18; O2SAT 98
--- NOTE | 2016-09-29 09:21 | PCM.PNMED ---
Subjective Date of Service Sep 29, 2016 Subjective Pain: Pleasant. Afebrile. Wound VAC applied to left hip by wound care. Exam Vital Signs Vital Sign - Last Date Time Temp Pulse Resp B/P Pulse Ox O2 Delivery O2 Flow Rate FiO2 09/29/16 04:23 36.8 65 18 95/60 98 Room Air 09/27/16 17:24 1.50 Intake and Output 09/28/16 09/28/16 09/29/16 Cumulative From/Thru 15:00 23:00 07:00 09/23/16 15:44 - 09/29/16 06:29 Intake Total 1233 ml 637 ml 13530 ml Output Total 800 ml 1000 ml 51971 ml Balance 433 ml -363 ml 1494 ml Intake Oral 1072 ml 637 ml 9133 ml IV Total 161 ml 6986 ml Output Urine Total 800 ml 1000 ml 02261 ml # Bowel Movements 2 Exam General: Alert, Oriented X3, Cooperative, moderate Distress Eyes: PERRL, normal sized pupils Mouth: Mucous Membrane Moist/[place] clear chest no murmur Abdomen: Non-tender, Non-distended, No hepatosplenomegaly Neurological: Grossly Neurologically Intact, SHANEKA:left thigh / hip abscess site s/p I&D .cleanly dressed .left arm recent I&D site cleanly dressed. Wound VAC in place IVs and Medications Medications Reviewed: Medications were reviewed in detail Lab and Diagnostics Result Diagram: 09/28/1645 09/28/16 0545 X-Rays, CTs and MRIs PROCEDURE: US EXTREMITY SONOGRAM LIMITED ([id number]) INDICATIONS: hip pain w/ concern of abscess FINDINGS: Complex, multiseptated subcutaneous mass is seen corresponding to the region of palpable abnormality measuring roughly 3.7 x 4.2 x 2.1 cm. Doppler assessment demonstrates mild peripheral and no internal flow. IMPRESSION: Complex, multiseptated subcutaneous mass present corresponding to the palpable abnormality. Findings may be related to underlying infection or possibly related to prior trauma although neoplasm would also be included in the differential. No drainable fluid collection is seen. If indicated MRI could be performed for further assessment. Dictated by: Jeff ZEPEDA Interpreted: Yoel Pearl MD on 09/27/2016 at 10: 59 PROCEDURE: MRI FEMUR RIGHT WITH AND WITHOUT CONTRAST ([id number]) INDICATIONS: Persistent right lat thigh abscess in IVDU-? sinus tra IMPRESSION: 1. Cutaneous thickening with T2 increased signal and enhancement consistent with cellulitis. No fluid collection is present. 2. No evidence of osteomyelitis. 3. Bilateral enlarged inguinal lymph nodes, most likely reactive. Dictated by: Erika Park M.D. on 09/24/2016 at 20:48 Additional Diagnostics DATE OF SURGERY: 09/27/2016 PREOPERATIVE DIAGNOSIS(ES): Left hip abscess. POSTOPERATIVE DIAGNOSIS(ES): Left hip abscess x2. PROCEDURE: Incision and drainage of deep left hip abscess x2. SURGEON: Ryan Melgoza MD INDICATIONS: A 45-year-old woman who was thought to have infection with an elevated leukocytosis secondary to old left shoulder abscess. However, this morning, her white count gerald a bit more, and she began complaining of left hip pain. She has an area of induration and fluctuance in the left hip that is confirmed by ultrasound. Is brought to the operating room. FINDINGS: The patient had two fairly deep left hip abscesses in an area where she has had previous abscesses. I suspect that this was the cause of her initial leukocytosis to 32,000. Assessment & Plan This is a 45 year old female IV heroin user with history significant for hepatitis c and treated endocarditis with multiple sites of possible infection on her body including abscess. Her WBC on admit was 32.1 with left shift with heart rate of 115. . She does qualify for sepsis criteria. 1 Liter bolus NS given in ED. Sites of possible infection include left upper arm abscess. I&D performed on this abscess in ED on September 19. Right lower extremity abrasion with granulation tissue overlaying that has been non-healing for six months. As she is a IV heroin user need to rule out endocarditis and blood cultures have been drawn. We have admitted her for IV antibiotics and to rule out endocarditis. # Sepsis due to left hip abscess , present on admission, ongoing: -Initial WBC 32.1. Heart rate 115. Multiple potential sources of infection., now improving. - She was initially started on vancomycin on admission that was discontinued on negative MRSA, ceftriaxone was initially started . received dalbavancin 1.5g on 09/26/[address] Devine added ertapenem on 09/28 due to gram variable rods to cover anaerobs .final culture result pending -Blood cultures remain negative -TTE was not completed due to patient discomfort, but initial review did not seem to demonstrate evidence of valvular pathology. If blood cultures are positive or concern is anxiety may need to consider KAYDEN in the future - Discontinue intravenous fluids given good by mouth intake # Left Hip Abscess: likely poa but noted on 09/27 - s/p I&D on 09/27/16 -wound care consult . Wound VAC in place -culture ,gram positive cocci and gram variable rods -received dalbavancin 1.5g on 09/26/[address] Devine added ertapenem on 09/28 due to gram variable rods to cover anaerobs .final culture result pending # Recent Left arm abscess, present on admission, stable: -Improved after I&D on 09/19. Was on Doxycycline outpatient. -Wound care ordered. # Microcytic anemia, present on admission, ongoing: On admit: hgb 11.0 and MCV 76.0. - Unknown chronicity. Possibly anemia of chronic disease vs iron deficiency anemia. - Condition is stable - Iron studies suggestive of iron deficiency setting of chronic disease, given low iron-binding capacity in the setting of anemia and low iron levels. This may be the result of poor self-care given comorbid substance abuse. - We will continue to monitor with improved diet and lifestyle. # Elevated transaminases, present on admission, ongoing: -AST 101, ALT 93. Alk phos 229. -Likely secondary to hepatitis c. -Continue to monitor. -Hepatitis panel ordered, confirms hepatitis C but no other infectious liver disease is noted. # IV heroin abuse, present on admission, ongoing: -At onset of symptoms of withdraw Suboxone 16mg (two strips) was provided with good result - Now continue daily. -As hospitalist can only prescribe Suboxone in hospital when patient leaves Dr. Wong or Dr. Talbert in the ED should be contacted prescribe outpatient Suboxone. -Encourage patient to followup with [facility] the local Suboxone providers. # Reported history of hepatitis C, present on admission, ongoing: -Hepatitis panel ordered, confirms hepatitis C - treatment deferred to outpatient setting # High risk sexual behavior, present on admission: -Patient's had multiple partners. They were also sharing needles. -No evidence of STD or HIV based on screening studies. disposition:discharge in 2-3 days VTE Mechanical Devices: Anti-Embolic stockings Resuscitation Status: CPR: Attempt Resuscitation Rock Bravo MD Sep 29, 2016 09:21
[2016-09-29] MEDS: Buprenorphine 2 mg SL Tablet SL PRN (09:27)
[2016-09-29 09:53] VITALS: BP 128/74; PULSE 62; RESP 18; O2SAT 96
--- NOTE | 2016-09-29 10:12 | PCM.PNSURG ---
Subjective Date of Service: Sep 29, 2016 Date of Service: Sep 29, 2016 Visit Information: Reason for Visit Fever/Ivda Infective Endocarditis Surgery/Surgery Date Post-Op Day # 2 s/p Left hip I&D x 2 with VAC Date of Admission: Sep 23, 2016 at 20:04 Hospital Day # Subjective: Patient seen today at bedside. Pain improved. VAC applied to left hip with good seal. Patient hopeful for future with taoist contact and improved support plans as outpatient. Denies f/c. Wants to ambulate in [place]. Postop General: No Complaints (except moderate pain with dressing changes to left hip.) Gastrointestinal: Tolerating Oral Feedings Pain Management: Good Pain Control (buprenorphine, ibuprofen, ketoralac) Objective Vital Sign- Last 8 Hours Date Time Temp Pulse Resp B/P Pulse Ox O2 Delivery O2 Flow Rate FiO2 09/29/16 09:53 36.8 62 18 128/74 96 Room Air 09/29/16 04:23 36.8 65 18 95/60 98 Room Air Intake and Output- Last 8 Hour 09/29/16 Cumulative From/Thru 07:00 09/23/16 15:44 - 09/29/16 06:29 Intake Total 637 ml 39719 ml Output Total 1000 ml 91852 ml Balance -363 ml 1494 ml Intake Oral 637 ml 9133 ml IV Total 6986 ml Output Urine Total 1000 ml 00792 ml # Bowel Movements 2 General: Alert, Oriented X3, Cooperative, No Acute Distress Lungs: Clear to Auscultation, Normal Air Movement Heart: Regular Rate/Rhythm, Normal S1, Normal S2 Abdomen: Soft SURGICAL WOUND : Wound Location/Description left hip with VAC dressing to good seal. Right hip ulcer/abrasion with limited granulation tissue noted, under dressing. No surrounding erythema. Left lateral upper arm with punctate wound under dressing, gauze packed. No erythema. Wound General Appearence: Wound Vac, No Erythema, No Inflammatory Changes, Wound under dressing Dressing & Drainage Status: No Odor Result Diagram: 09/28/16 0545 09/28/16 0545 Assessment & Plan Impression Left hip wound pod 2 s/p I&D and VAC dressing application Right hip stable under dressing Left arm wound packed with gauze and stable. MRSA negative. Problems: Plan Continue wound care VAC change tomorrow or Tuesday; premedicate vs shower ambulate now mrsa neg abx per ID; await final cx results Resuscitation Status: CPR: Attempt Resuscitation Tony Soto PA-C Sep 29, 2016 10:12
--- NOTE | 2016-09-29 11:01 | PROG NOTE ---
[address] [address] PROGRESS NOTE PATIENT: KIRSTEN KAUFFMAN : 1970 MR#: [id number] ADMIT: 09/23/2016 JOB ID: [id number] DATE: 09/29/2016 REASON FOR FOLLOWUP: Left buttock abscess, left triceps abscess, and chronic wound right thigh. She is an injection drug user. INTERVAL HISTORY: The patient reports she is feeling reasonably well. She has a wound VAC in place over her recent surgical debridement site in her left flank. This is quite tender around the margins of the wound VAC, but otherwise she is feeling fairly well. She has really no symptoms from her left triceps abscess nor from her right thigh chronic wound. She is having no fever, chills. No headache, cough, or shortness of breath. PHYSICAL EXAMINATION: Reveals an afebrile woman temp 36.8, pulse 62, respiratory rate 18, blood pressure 128/74, saturating 96% on room air. She is awake, alert, and quite happy today. Oral cavity negative. Lungs clear. Cardiac tones without change. Abdomen benign. Her left triceps wound is packed, but is almost completely resolved. It would appear she has a large wound VAC present over her recent left flank/upper buttock debridement site surrounding there is some mild cellulitis. Remainder of the exam unremarkable. LABORATORIES: Include a white count yesterday 10,000 not repeated today. Creatinine was repeated today was 0.79. Micro studies were discussed with the micro lab. Her wound from the debridement is growing some Strep. No gram-negative rods have been seen, but there is a question of maybe some anaerobes and we will know more about that tomorrow. IMPRESSION: Injection drug user with multiple abscesses including left arm, right leg, left flank area, and left upper thigh/buttock area. The patient is status post debridement and seems to be improving with wound VAC in place. Final microbiology expected tomorrow. RECOMMENDATIONS: 1. The patient has dalbavancin on board and so has good Staph and Strep treatment. 2. Continuing ertapenem just for anaerobes and other organisms until we have back a final result on cultures tomorrow. 3. Final ID recommendations tomorrow.
[2016-09-29] MEDS: Ertapenem Inj 1,000 MG in 0.9% Sodium Chloride 50 ML IV SCH (11:29)
--- NOTE | 2016-09-29 14:05 | NUR ---
HOME WOUND VAC APPROVAL SUBMITTED Paperwork was submitted to [facility] for patient to have a [facility] home wound vac approved when ready for discharge.
--- NOTE | 2016-09-29 15:42 | NUR ---
spiritual care: routine brief conversational visit. pt requested prayer or psalm to focus on. pt agreeable to offer for additional support from caring swamper. Addendum: 09/29/16 at 1544 by RAYMOND STONER CM caring swamper Dulce met pt and returned following other clinical tasks for conversational visit
--- NOTE | 2016-09-29 17:13 | NUR ---
Social Work- Continued D/C Planning Data: EMR reviewed. Pt is on day 6 of hospitalization for fever, IVDA infective endocarditis per H&P. Pt is not medically stable for discharge at this time. Pt has wound vac placed. [facility] at 2:15 pm check in with Doctor Abel. JEEPER OPERATOR met with pt at bedside regarding this. Pt updated regarding PCP, pt agreeable. SW wrote plan on whiteboard. Per CDP, pt is pursuing sober housing, intensive outpt treatment and services through [facility] upon discharge. Pt has been connected with [facility] for Suboxone. Pt confirmed that she is pursuing intensive outpt treatment and [facility]. Pt requested JEEPER OPERATOR route phone call with [facility] to her room phone, SW facilitated this. Per MD in rounds, pt will not need IV abx at discharge. SW will continue to follow for discharge needs. Assessment: Pt who is independent at baseline. Plan: Pt to discharge home via POV. Pt to pursue intensive outpt treatment through [facility]. Pt updated and agreeable to plan. SW will continue to follow. BASHIR Rose Addendum: 09/30/16 at 1614 by FOSTER MANCILLA Pt updated of intake time for IOP of October 04 at 1 pm. Pt updated and agreeable to change in PCP appointment to October 06 at 4:15. Pt confirms that she knows where to go to for intake. Pt confirms that she will have friends transport home to [place] at discharge. BASHIR Rose
--- NOTE | 2016-09-29 19:14 | NUR ---
broken tooth this afternoon pt said she broke her tooth, upper right. C/o severe tooth pain especially after she took a bite of dinner, Toradol given.
[2016-09-29 19:35] VITALS: BP 111/73; PULSE 60; RESP 16; O2SAT 96
--- NOTE | 2016-09-29 23:09 | NUR ---
Pain/insomnia Pt c/o rt tooth pain 11/01 and insomnia. Tylenol 975mg and Melatonin 1mg given per request. Care ongoing. Call light within reach.
[2016-09-30] MEDS ORDERED: 0.9% Sodium Chloride 250 ML ONE (01:25)
[2016-09-30] MEDS: Promethazine Inj 12.5 MG in 0.9% Sodium Chloride 100 ML IV PRN ×2 (01:31→14:04)
[2016-09-30 04:30] VITALS: BP 114/62; PULSE 54; RESP 16; O2SAT 95
--- NOTE | 2016-09-30 08:20 | PCM.PNMED ---
Subjective Date of Service Sep 30, 2016 Subjective Pain controlled. Afebrile. Minimal output from wound VAc Exam Vital Signs Vital Sign - Last Date Time Temp Pulse Resp B/P Pulse Ox O2 Delivery O2 Flow Rate FiO2 09/30/16 04:30 36.4 54 16 114/62 95 Room Air 09/27/16 17:24 1.50 Intake and Output 09/29/16 09/29/16 09/30/16 Cumulative From/Thru 15:00 23:00 07:00 09/23/16 15:44 - 09/30/16 06:25 Intake Total 1005 ml 1438 ml 07857 ml Output Total 1250 ml 850 ml 71415 ml Balance -245 ml 588 ml 1837 ml Intake Oral 1005 ml 1438 ml 77002 ml IV Total 6986 ml Output Urine Total 1250 ml 850 ml 45581 ml # Bowel Movements 0 2 Exam General: Alert, Oriented X3, Cooperative, moderate Distress Eyes: PERRL, normal sized pupils Mouth: Mucous Membrane Moist/[place] clear chest no murmur Abdomen: Non-tender, Non-distended, No hepatosplenomegaly Neurological: Grossly Neurologically Intact, SHANEKA:left thigh / hip abscess site s/p I&D .cleanly dressed .Wound VAC in place. Left arm recent I&D site cleanly dressed. IVs and Medications Medications Reviewed: Medications were reviewed in detail Lab and Diagnostics Result Diagram: 09/28/16 0545 09/29/16 0925 X-Rays, CTs and MRIs PROCEDURE: US EXTREMITY SONOGRAM LIMITED ([id number]) INDICATIONS: hip pain w/ concern of abscess FINDINGS: Complex, multiseptated subcutaneous mass is seen corresponding to the region of palpable abnormality measuring roughly 3.7 x 4.2 x 2.1 cm. Doppler assessment demonstrates mild peripheral and no internal flow. IMPRESSION: Complex, multiseptated subcutaneous mass present corresponding to the palpable abnormality. Findings may be related to underlying infection or possibly related to prior trauma although neoplasm would also be included in the differential. No drainable fluid collection is seen. If indicated MRI could be performed for further assessment. Dictated by: Jeff ZEPEDA Interpreted: Yoel Pearl MD on 09/27/2016 at 10: 59 PROCEDURE: MRI FEMUR RIGHT WITH AND WITHOUT CONTRAST ([id number]) INDICATIONS: Persistent right lat thigh abscess in IVDU-? sinus tra IMPRESSION: 1. Cutaneous thickening with T2 increased signal and enhancement consistent with cellulitis. No fluid collection is present. 2. No evidence of osteomyelitis. 3. Bilateral enlarged inguinal lymph nodes, most likely reactive. Dictated by: Erika Park M.D. on 09/24/2016 at 20:48 Additional Diagnostics DATE OF SURGERY: 09/27/2016 PREOPERATIVE DIAGNOSIS(ES): Left hip abscess. POSTOPERATIVE DIAGNOSIS(ES): Left hip abscess x2. PROCEDURE: Incision and drainage of deep left hip abscess x2. SURGEON: Ryan Melgoza MD INDICATIONS: A 45-year-old woman who was thought to have infection with an elevated leukocytosis secondary to old left shoulder abscess. However, this morning, her white count gerald a bit more, and she began complaining of left hip pain. She has an area of induration and fluctuance in the left hip that is confirmed by ultrasound. Is brought to the operating room. FINDINGS: The patient had two fairly deep left hip abscesses in an area where she has had previous abscesses. I suspect that this was the cause of her initial leukocytosis to 32,000. Assessment & Plan This is a 45 year old female IV heroin user with history significant for hepatitis c and treated endocarditis with multiple sites of possible infection on her body including abscess. Her WBC on admit was 32.1 with left shift with heart rate of 115. . She does qualify for sepsis criteria. 1 Liter bolus NS given in ED. Sites of possible infection include left upper arm abscess. I&D performed on this abscess in ED on September 19. Right lower extremity abrasion with granulation tissue overlaying that has been non-healing for six months. As she is a IV heroin user need to rule out endocarditis and blood cultures have been drawn. We have admitted her for IV antibiotics and to rule out endocarditis. # Sepsis due to left hip abscess , present on admission, ongoing: -Initial WBC 32.1. Heart rate 115. Source left hip abscess., now improving. - She was initially started on vancomycin on admission that was discontinued on negative MRSA, ceftriaxone was initially started . received dalbavancin 1.5g on 09/26/[address] Devine added ertapenem on 09/28 due to gram variable rods on Gram stain to cover anaerobs .final culture result pending -Blood cultures remain negative -TTE was not completed due to patient discomfort, but initial review did not seem to demonstrate evidence of valvular pathology. If blood cultures are positive or concern is anxiety may need to consider KAYDEN in the future - Discontinue intravenous fluids given good by mouth intake # Left Hip Abscess: likely poa but noted on 09/27 - s/p I&D on 09/27/16 -wound care consult . Wound VAC in place -culture ,gram positive cocci and gram variable rods -received dalbavancin 1.5g on 09/26/[address] Devine added ertapenem on 09/28 due to gram variable rods to cover anaerobs .final culture result pending . Dr. Devine will decide on antibiotics today # Recent Left arm abscess, present on admission, stable: -Improved after I&D on 09/19. Was on Doxycycline outpatient. -Wound care ordered. # Microcytic anemia, present on admission, ongoing: On admit: hgb 11.0 and MCV 76.0. - Unknown chronicity. Possibly anemia of chronic disease vs iron deficiency anemia. - Condition is stable - Iron studies suggestive of iron deficiency setting of chronic disease, given low iron-binding capacity in the setting of anemia and low iron levels. This may be the result of poor self-care given comorbid substance abuse. - We will continue to monitor with improved diet and lifestyle. # Elevated transaminases, present on admission, ongoing: -AST 101, ALT 93. Alk phos 229. -Likely secondary to hepatitis c. -Continue to monitor. -Hepatitis panel ordered, confirms hepatitis C but no other infectious liver disease is noted. # IV heroin abuse, present on admission, ongoing: -At onset of symptoms of withdraw Suboxone 16mg (two strips) was provided with good result - Now continue daily. -As hospitalist can only prescribe Suboxone in hospital when patient leaves Dr. Wong or Dr. Talbert in the ED should be contacted prescribe outpatient Suboxone. -Encourage patient to followup with [facility] the local Suboxone providers. # Reported history of hepatitis C, present on admission, ongoing: -Hepatitis panel ordered, confirms hepatitis C - treatment deferred to outpatient setting # High risk sexual behavior, present on admission: -Patient's had multiple partners. They were also sharing needles. -No evidence of STD or HIV based on screening studies. disposition:discharge in 2-3 days VTE Mechanical Devices: Intermittant Pneumatic CD Resuscitation Status: CPR: Attempt Resuscitation Rock Bravo MD Sep 30, 2016 08:20
[2016-09-30] MEDS: Buprenorphine 2 mg SL Tablet SL PRN (10:20)
[2016-09-30] MEDS: Ondansetron 2 mg/mL 2 mL Inj IVPUSH PRN (10:41)
[2016-09-30] MEDS: Ertapenem Inj 1,000 MG in 0.9% Sodium Chloride 50 ML IV SCH (11:24)
--- NOTE | 2016-09-30 11:27 | NUR ---
Rescheduled hospital follow up appointment due to conflict with IOP intake appointment. New appointment is on Tue check in at 415PM for 430PM appointment with Updated REAGENT TENDER HELPER
--- NOTE | 2016-09-30 11:37 | PROG NOTE ---
[address] [address] PROGRESS NOTE PATIENT: KIRSTEN KAUFFMAN : 1970 MR#: [id number] ADMIT: 09/23/2016 JOB ID: [id number] DATE: 09/30/2016 INFECTIOUS DISEASE FOLLOWUP NOTE: REASON FOR FOLLOWUP: Multiple soft tissue infections in an injection drug user. INTERVAL HISTORY: Overnight, the patient has had some nausea and one episode of vomiting. She reports continued constipation. No fevers, chills, or shortness of breath. She still has pain at the site of her left flank wound VAC. PHYSICAL EXAMINATION: Reveals a comfortable woman, in no acute distress. She is afebrile, has been for days. Temperature 36.4, pulse 54, respiratory rate 16, blood pressure 114/62. She is saturating well on room air. Oral cavity is notable for a tooth on the right lower mandible which apparently broke off during the night and appears carious. Lungs are clear. Abdomen without change. The left triceps wound has completely healed and could just have a Band-Aid placed over it but at this point no need for anything more elaborate. The left flank has the wound VAC in place. There is minimal surrounding cellulitis. LABORATORIES: Include white count checked two days ago was down to 10.8. Creatinine 0.79; that was yesterday's. She is hep C positive. Micro from the debridement on the is growing an alpha strep, as well as an anaerobe. MRSA screen negative. Blood cultures negative. IMPRESSION: This patient is improving with respect to her multiple soft tissue infections, which include left triceps, right leg and left flank. She is status post debridement of all the appropriate areas and doing well with a vacuum assisted closure in place. The streptococcus has been adequately treated with dalbavancin she has on board. We are continuing ertapenem mainly for the anaerobes but I think once she is ready to go this could be easily transitioned to clindamycin which would cover presumably the anaerobes, as well as provide supplemental coverage for any other gram-positive or anaerobic organisms present. RECOMMENDATIONS: 1. No additional specific gram-positive therapy is indicated. 2. Will continue ertapenem once a day while she is here in the hospital but once she is ready to go, she could be discharged on about a 10-day course of clindamycin 300 mg q.i.d. 3. Infectious Disease will go ahead and sign off at this time, as there are no active issues and those are my final recommendations for antibiotics.
[2016-09-30 13:45] VITALS: BP 114/68; PULSE 67; RESP 16; O2SAT 96
--- NOTE | 2016-09-30 18:05 | NUR ---
Pain Pt continuing to say she is having tooth pain, but it is lower right tooth, previous charting stated upper right tooth. Examined pt and she does have broken lower right tooth, with no bleeding or inflammation of gums. Pt given Toradol and one-time dose of Morphine. Pt's demeanor changed part-way through shift and was concerning that she possibly could have taken something, but she had no visitors. Unused needles and saline flushes found in piper installer her room were removed. Dressing on upper arm removed by MD and left open to air. Dressing on right thigh changed. Pt had nausea and stated vomited once, but no vomit seen by staff. Medications given. Bed in low, call light in reach, continue Q1 hour rounding.
[2016-09-30 22:22] VITALS: BP 111/70; PULSE 74; RESP 16; O2SAT 97
--- NOTE | 2016-10-01 03:19 | NUR ---
Activity Pt slept entire shift, waking only to use BR and during rounds. 0 c/o pain. Requested melatonin for sleep early in shift. Wound vac dressing intact and wound vac operating per specifications. Pt has 0 c/o nausea. Bed in low position, call light within reach. Care continues
[2016-10-01 06:17] VITALS: BP 100/60; PULSE 59; RESP 16; O2SAT 97
[2016-10-01 07:36] LABS: BASOPHILS % (AUTO) 0.8 % (0-3); MONOCYTES % (AUTO) 5.7 % (4-12); Mean Corpuscular Hemoglobin 23.9 pg (27.0-35.0); Mean Corpuscular Volume 78.7 fL (81-100); NEUTROPHILS % (AUTO) 48.3 % (40-74); Platelet Count 444 bil/L (150-400)
[2016-10-01 08:05] LABS: Magnesium 1.9 mg/dL (1.6-2.6)
[2016-10-01 09:06] VITALS: BP 131/73; PULSE 68; RESP 16; O2SAT 96
[2016-10-01] MEDS: Buprenorphine 2 mg SL Tablet SL PRN (09:12)
[2016-10-01] MEDS: Ertapenem Inj 1,000 MG in 0.9% Sodium Chloride 50 ML IV SCH (11:07)
[2016-10-01] MEDS: Polyethylene Glycol (PEG) 17 Gm Powder PO PRN (11:07)
[2016-10-01] MEDS: Diphen-Lido-Mylanta 1:1:1 Susp 15 mL Syringe PO PRN (11:53)
--- NOTE | 2016-10-01 11:58 | PCM.PNSURG ---
Subjective Date of Service: Oct 01, 2016 Date of Service: Oct 01, 2016 Visit Information: Reason for Visit Fever/Ivda Infective Endocarditis Surgery/Surgery Date Incision and drainage of deep left hip abscess x2/ Sep Post-Op Day # 4 Date of Admission: Sep 23, 2016 at 20:04 Hospital Day # 9 Subjective: Patient seen today at bedside. Pain at wound sites continues to improve. She is working to help control pain from her broken tooth with magic mouthwash and dental wax. VAC applied to left hip with good seal, very minimal dark material in chamber of VAC, will be changed today. Denies f/c, has not been nauseous this morning. Has been ambulating in trivedi. Objective Vital Sign- Last 8 Hours Date Time Temp Pulse Resp B/P Pulse Ox O2 Delivery O2 Flow Rate FiO2 10/01/16 09:06 36.7 68 16 131/73 96 Room Air 10/01/16 06:17 36.6 59 16 100/60 97 Room Air Intake and Output- Last 8 Hour 10/01/16 Cumulative From/Thru 07:00 09/23/16 15:44 - 10/01/16 06:17 Intake Total 472 ml 76293 ml Output Total 1050 ml 33352 ml Balance -578 ml 1496 ml Intake Oral 472 ml 97922 ml IV Total 7051 ml Output Urine Total 1050 ml 68236 ml # Bowel Movements 0 2 General: Alert, Oriented X3, Cooperative Neck: Supple Lungs: Clear to Auscultation Heart: Regular Rate/Rhythm Abdomen: Benign, Soft SURGICAL WOUND : Wound Location/Description VAC with good seal and minimal dark output to left hip in T shape. Tenderness surrounding area of VAC Extremities: Distal Pulses Palpable, Warm Neuro: Grossly Neurologically Intact Catheters: None Result Diagram: 10/01/16 0725 10/01/16 0725 Assessment & Plan Impression Left hip wound pod 4 s/p I&D left hip abscess x2 and VAC dressing application Right hip stable under dressing Left arm wound healing nicely, no dressing needed at this time. Problems: Plan Continue wound care VAC change to be done today MRSA neg abx per ID; Hip culture resulted Prevotella Oralis Resuscitation Status: CPR: Attempt Resuscitation Attending Statement: I agree with Dr. Deng's assessment and plan. copies to: Ryan Melgoza MD; Aidan Cm MD, Erika R DO Oct 01, 2016 11:58 Aidan Cm MD Oct 05, 2016 10:05
--- NOTE | 2016-10-01 13:24 | PCM.PNMED ---
Subjective Date of Service Oct 01, 2016 Subjective Pain control. Complaints of right lower jaw /dental pain. She has right lower premolar dental caries and fracture recently. Afebrile. Right hip pain controlled. She had small swelling on Right arm yesterday which is better today. Wound VAC in place with minimal output Exam Vital Signs Vital Sign - Last Date Time Temp Pulse Resp B/P Pulse Ox O2 Delivery O2 Flow Rate FiO2 10/01/16 09:06 36.7 68 16 131/73 96 Room Air 09/27/16 17:24 1.50 Intake and Output 09/30/16 09/30/16 10/01/16 Cumulative From/Thru 15:00 23:00 07:00 09/23/16 15:44 - 10/01/16 06:17 Intake Total 65 ml 972 ml 472 ml 58635 ml Output Total 800 ml 1050 ml 32003 ml Balance 65 ml 172 ml -578 ml 1496 ml Intake Oral 972 ml 472 ml 18583 ml IV Total 65 ml 7051 ml Output Urine Total 800 ml 1050 ml 20161 ml # Bowel Movements 0 0 2 Exam General: Alert, Oriented X3, Cooperative, moderate Distress Eyes: PERRL, normal sized pupils Mouth: Mucous Membrane Moist/[place] clear chest no murmur Abdomen: Non-tender, Non-distended, No hepatosplenomegaly Neurological: Grossly Neurologically Intact, SHANEKA:left thigh / hip abscess site s/p I&D .cleanly dressed .Wound VAC in place with minimal output. Left arm recent I&D site cleanly dressed. IVs and Medications Medications Reviewed: Medications were reviewed in detail Lab and Diagnostics Result Diagram: 10/01/1672410/01/16 0725 X-Rays, CTs and MRIs PROCEDURE: US EXTREMITY SONOGRAM LIMITED ([id number]) INDICATIONS: hip pain w/ concern of abscess FINDINGS: Complex, multiseptated subcutaneous mass is seen corresponding to the region of palpable abnormality measuring roughly 3.7 x 4.2 x 2.1 cm. Doppler assessment demonstrates mild peripheral and no internal flow. IMPRESSION: Complex, multiseptated subcutaneous mass present corresponding to the palpable abnormality. Findings may be related to underlying infection or possibly related to prior trauma although neoplasm would also be included in the differential. No drainable fluid collection is seen. If indicated MRI could be performed for further assessment. Dictated by: Jeff ZEPEDA Interpreted: Yoel Pearl MD on 09/27/2016 at 10: 59 PROCEDURE: MRI FEMUR RIGHT WITH AND WITHOUT CONTRAST ([id number]) INDICATIONS: Persistent right lat thigh abscess in IVDU-? sinus tra IMPRESSION: 1. Cutaneous thickening with T2 increased signal and enhancement consistent with cellulitis. No fluid collection is present. 2. No evidence of osteomyelitis. 3. Bilateral enlarged inguinal lymph nodes, most likely reactive. Dictated by: Erika Park M.D. on 09/24/2016 at 20:48 Additional Diagnostics DATE OF SURGERY: 09/27/2016 PREOPERATIVE DIAGNOSIS(ES): Left hip abscess. POSTOPERATIVE DIAGNOSIS(ES): Left hip abscess x2. PROCEDURE: Incision and drainage of deep left hip abscess x2. SURGEON: Ryan Melgoza MD INDICATIONS: A 45-year-old woman who was thought to have infection with an elevated leukocytosis secondary to old left shoulder abscess. However, this morning, her white count gerald a bit more, and she began complaining of left hip pain. She has an area of induration and fluctuance in the left hip that is confirmed by ultrasound. Is brought to the operating room. FINDINGS: The patient had two fairly deep left hip abscesses in an area where she has had previous abscesses. I suspect that this was the cause of her initial leukocytosis to 32,000. Assessment & Plan This is a 45 year old female IV heroin user with history significant for hepatitis c and treated endocarditis with multiple sites of possible infection on her body including abscess. Her WBC on admit was 32.1 with left shift with heart rate of 115. . She does qualify for sepsis criteria. 1 Liter bolus NS given in ED. Sites of possible infection include left upper arm abscess. I&D performed on this abscess in ED on September 19. Right lower extremity abrasion with granulation tissue overlaying that has been non-healing for six months. As she is a IV heroin user need to rule out endocarditis and blood cultures have been drawn. We have admitted her for IV antibiotics and to rule out endocarditis. # Sepsis due to left hip abscess , present on admission, resolved -Initial WBC 32.1. Heart rate 115. Source left hip abscess., now improving. - She was initially started on vancomycin on admission that was discontinued on negative MRSA, ceftriaxone was initially started . received dalbavancin 1.5g on 09/26/[address] Devine added ertapenem on 09/28 due to gram variable rods on Gram stain to cover anaerobs .final culture result pending -Blood cultures remain negative -TTE was not completed due to patient discomfort, but initial review did not seem to demonstrate evidence of valvular pathology. # Left Hip Abscess: likely poa but noted on 09/27 - s/p I&D on 09/27/16 -wound care consult . Wound VAC in place -culture ,gram positive cocci and gram variable rods -received dalbavancin 1.5g on 09/26/[address] Devine added ertapenem on 09/28 due to gram variable rods to cover anaerobs .final culture result pending . Dr. Devine will decide on antibiotics today # Recent Left arm abscess, present on admission, stable: -Improved after I&D on 09/19. Was on Doxycycline outpatient. -Wound care ordered. # Microcytic anemia, present on admission, ongoing: On admit: hgb 11.0 and MCV 76.0. - Unknown chronicity. Possibly anemia of chronic disease vs iron deficiency anemia. - Condition is stable - Iron studies suggestive of iron deficiency setting of chronic disease, given low iron-binding capacity in the setting of anemia and low iron levels. This may be the result of poor self-care given comorbid substance abuse. - We will continue to monitor with improved diet and lifestyle. # Elevated transaminases, present on admission, ongoing: -AST 101, ALT 93. Alk phos 229. -Likely secondary to hepatitis c. -Continue to monitor. -Hepatitis panel ordered, confirms hepatitis C but no other infectious liver disease is noted. # IV heroin abuse, present on admission, ongoing: -At onset of symptoms of withdraw Suboxone 16mg (two strips) was provided with good result - Now continue daily. -As hospitalist can only prescribe Suboxone in hospital when patient leaves Dr. Wong or Dr. Talbert in the ED should be contacted prescribe outpatient Suboxone. -Encourage patient to followup with [facility] the local Suboxone providers. # Reported history of hepatitis C, present on admission, ongoing: -Hepatitis panel ordered, confirms hepatitis C - treatment deferred to outpatient setting # High risk sexual behavior, present on admission: -Patient's had multiple partners. They were also sharing needles. -No evidence of STD or HIV based on screening studies. disposition:discharge tomorrow on clindamycin for 10 more days. Wound care to decide whether to discharge on wound VAC or dressing only VTE Mechanical Devices: Intermittant Pneumatic CD Resuscitation Status: CPR: Attempt Resuscitation Rock Bravo MD Oct 01, 2016 13:23
[2016-10-01] MEDS: Promethazine Inj 12.5 MG in 0.9% Sodium Chloride 100 ML IV PRN (14:16)
[2016-10-01 15:19] VITALS: BP 116/68; PULSE 73; RESP 16; O2SAT 95
--- NOTE | 2016-10-01 15:38 | NUR ---
Nausea / vomiting Pt reported that she vomited approximately 20 minutes after eating lunch today. Unable to measure emesis, as pt vomited undigested food in the toilet. Administered IV Phenergan. Pt reported that she felt better and nausea "was under control."
--- NOTE | 2016-10-01 19:10 | NUR ---
Wound note Patient seen at bedside for wound care and dressing change. Left thigh ulcers draining sanguineous drainage 40 cc's into NPWT canister, dressing taken down and new dressing applied using black foam as wounds are still with significant depth (>2 cm),pressure at 150 mmhg and a good seal was attained. Patient instructed in us of NPWT home going unit is ready for discharge, patient to follow up at the wound center on 10/04 for NPWT dressing change. Right lateral thigh wound cleaned with gauze and saline and redressed with silverlon dressing and mepilex with NPWT drape used to make dressing waterproof. Patient to keep this dressing in place till appt at wound center on 10/04. Left deltoid wound is healed at this time.
[2016-10-01 19:46] VITALS: BP 98/61; PULSE 73; RESP 18; O2SAT 96
--- NOTE | 2016-10-02 04:55 | NUR ---
activity pt has had an uneventful shift. she requested motrin and melatonin early on in the shift. she has slept the rest of the shift. upon rounding she has denied the need for any further pain medications. wound vac is in place and functioning. no output visible. she has denied any N/V this shift and says she had a medium BM last evening before bed. VSS and afebrile. care continues.
[2016-10-02 05:54] VITALS: BP 109/71; PULSE 68; RESP 16; O2SAT 96
--- NOTE | 2016-10-02 10:14 | PCM.DIMED ---
Discharge Instructions Date of Service Oct 02, 2016 Dates of Hospitalization Sep 23, 2016 at 20:04 Discharge Diagnosis Discharge Diagnosis # Sepsis due to left hip abscess , present on admission, resolved # Left Hip Abscess: likely poa but noted on 09/27 - s/p I&D on 09/27/16 # Recent Left arm abscess, present on admission, stable: # Microcytic anemia, present on admission, ongoing: # IV heroin abuse, present on admission, ongoing: # Reported history of hepatitis C, present on admission, ongoing: # High risk sexual behavior, present on admission: Diet Discharge Diet: No restrictions Activity Discharge Activity: Limited until seen by PCP Call your provider Call your provider for: Fever or Chills, Shortness of breath, Bleeding, Chest pain, Vomitting, Excessive diarrhea, Weakness (unilateral) Patient Instructions Patient Instructions You were hospitalized due to sepsis secondary to left hip abscess. You underwent left hip incision and drainage. You have been treated with IV antibiotics. Please continue Flagyl 500 mg by mouth twice a day for 1 more week and Augmentin 875 mg by mouth twice a day for 2 more weeks. Please continue using wound VAC as instructed. Please follow-up with wound care clinic on Tuesday. Please follow-up with your new PCP [facility] on Tuesday as appointed. Please follow-up chemical dependency team on Tuesday has scheduled. Please follow-up with Dr. Devine in 1-2 weeks. Follow-up Provider: [facility] Follow-up with PCP in: 1 week (Tuesday) Provider: Chiki eDvine MD Follow-up in: 1 week Mid-level Provider (F9): [facility] Follow-up with Mid-level in: 1 week (Tuesday) Rock Bravo MD Oct 02, 2016 10:14
[2016-10-02] MEDS ORDERED: AMOX-366 PO (10:16)
[2016-10-02] MEDS ORDERED: IBUP-1827 PO (10:16)
[2016-10-02] MEDS ORDERED: METR500T19 PO (10:16)
[2016-10-02] MEDS ORDERED: OXYC1TAB24 PO (10:16)
--- NOTE | 2016-10-02 10:32 | PCM.DC.MED ---
Discharge Summary Date of Service Oct 02, 2016 Dates of Hospitalization Date of Hospital Admission Sep 23, 2016 at 20:04 Date of Discharge: Oct 02, 2016 Providers: Admitting Physician: Jg Gunn MD Primary Care Physician: Nopshayla Attending Physician: Jg Gunn MD Diagnosis at Time of Discharge Diagnosis at Time of Discharge # Sepsis due to left hip abscess , present on admission, resolved # Left Hip Abscess: likely poa but noted on 09/27 - s/p I&D on 09/27/16 # Recent Left arm abscess, present on admission, stable: # Microcytic anemia, present on admission, ongoing: # IV heroin abuse, present on admission, ongoing: # Reported history of hepatitis C, present on admission, ongoing: # High risk sexual behavior, present on admission: Consultations Surgery Dr. Melgoza Infectious diseases Dr. Devine Procedures XRay, CTs & MRIs PROCEDURE: US EXTREMITY SONOGRAM LIMITED ([id number]) INDICATIONS: hip pain w/ concern of abscess FINDINGS: Complex, multiseptated subcutaneous mass is seen corresponding to the region of palpable abnormality measuring roughly 3.7 x 4.2 x 2.1 cm. Doppler assessment demonstrates mild peripheral and no internal flow. IMPRESSION: Complex, multiseptated subcutaneous mass present corresponding to the palpable abnormality. Findings may be related to underlying infection or possibly related to prior trauma although neoplasm would also be included in the differential. No drainable fluid collection is seen. If indicated MRI could be performed for further assessment. Dictated by: Jeff Han RR Interpreted: Yoel Pearl MD on 09/27/2016 at 10: 59 PROCEDURE: MRI FEMUR RIGHT WITH AND WITHOUT CONTRAST ([id number]) INDICATIONS: Persistent right lat thigh abscess in IVDU-? sinus tra IMPRESSION: 1. Cutaneous thickening with T2 increased signal and enhancement consistent with cellulitis. No fluid collection is present. 2. No evidence of osteomyelitis. 3. Bilateral enlarged inguinal lymph nodes, most likely reactive. Dictated by: Erika Park M.D. on 09/24/2016 at 20:48 Other Diagnostics DATE OF SURGERY: 09/27/2016 PREOPERATIVE DIAGNOSIS(ES): Left hip abscess. POSTOPERATIVE DIAGNOSIS(ES): Left hip abscess x2. PROCEDURE: Incision and drainage of deep left hip abscess x2. SURGEON: Ryan Melgoza MD INDICATIONS: A 45-year-old woman who was thought to have infection with an elevated leukocytosis secondary to old left shoulder abscess. However, this morning, her white count gerald a bit more, and she began complaining of left hip pain. She has an area of induration and fluctuance in the left hip that is confirmed by ultrasound. Is brought to the operating room. FINDINGS: The patient had two fairly deep left hip abscesses in an area where she has had previous abscesses. I suspect that this was the cause of her initial leukocytosis to 32,000. Brief History per HPI This is a 45 year old female with history of IV heroin use, endocarditis treated 2 years ago, and hepatitis C who presents with abscess. The most recent abscess began one week ago and is located in her left arm . She came to the ED on September 19 and had a I&D at that time and was placed onto doxycycline. She states that the abscess it much improved since the I&D although still somewhat tender. She also states she has a abrasion present on the lateral, right lower thigh . She states that this abrasion began six months ago and has not healed. She returned to the hospital today due to several episodes of vomiting and fever she measured of tmax 101.7f. She does have increased urinary frequency and describes urinary hesitancy as well. She continues to use IV heroin and her last use was 5:00am this morning. Of note, she expresses interest in suboxone as she does want to stop using. She did share needles with her up until several months ago. She denies any chest pain or pressure, shortness of breath, diarrhea, constipation. Patient is also requesting STD testing as she stated that her had multiple partners. In the ED initial vitals were temp 36.4c, pulse 115, respiratory rate 16, blood pressure 105/72, and satting at 97% on room air. Initial laboratory values are WBC of 32.1 with left shift, hgb 11.0, hct 34.5, mcv 76, platelet count of 504. CMP significant for glucose of 118, AST 101, ALT 93. EKG showed sinus rhythm with rate of 90 and no axis deviation. Qtc of 420. Blood cultures pending. In the ED she was given vancomycin, clindamycin. Bolus of NS given in ED. Hospital Course This is a 45 year old female IV heroin user with history significant for hepatitis c and treated endocarditis with multiple sites of possible infection on her body including abscess. Her WBC on admit was 32.1 with left shift with heart rate of 115. . She does qualify for sepsis criteria. 1 Liter bolus NS given in ED. Sites of possible infection include left upper arm abscess. I&D performed on this abscess in ED on September 19. Right lower extremity abrasion with granulation tissue overlaying that has been non-healing for six months. As she is a IV heroin user need to rule out endocarditis and blood cultures have been drawn. We have admitted her for IV antibiotics and to rule out endocarditis. # Sepsis due to left hip abscess , present on admission, resolved -Initial WBC 32.1. Heart rate 115. Source left hip abscess., now resolved - She was initially started on vancomycin on admission that was discontinued on negative MRSA, ceftriaxone was initially started . received dalbavancin 1.5g on 09/26/[address] Devine added ertapenem on 09/28 due to gram variable rods on Gram stain to cover anaerobs .final culture result from wound growing prevotella and strep mitis . Discussed his infectious disease and recommend discharging her on Augmentin 875 mg by mouth twice a day for 2 more weeks and Flagyl 500 mg per day for 1 more week. -She will be discharged with portable wound VAC. Follow up with wound care clinic on Tuesday. Follow-up with Dr. Devine in 1-2 weeks. -Blood cultures remain negative -TTE was not completed due to patient discomfort, but initial review did not seem to demonstrate evidence of valvular pathology. # Left Hip Abscess: likely poa but noted on 09/27 - s/p I&D on 09/27/16 - Wound VAC in place as above -received dalbavancin 1.5g on 09/26/[address] Devine added ertapenem on 09/28 due to gram variable rods to cover anaerobs . Antibiotics as above # Recent Left arm abscess, present on admission, stable: -Improved after I&D on 09/19. Was on Doxycycline outpatient. # Microcytic anemia, present on admission, ongoing: On admit: hgb 11.0 and MCV 76.0. - Unknown chronicity. Possibly anemia of chronic disease - Condition is stable - Iron studies suggestive of iron deficiency setting of chronic disease, given low iron-binding capacity in the setting of anemia and low iron levels. This may be the result of poor self-care given comorbid substance abuse. - We will continue to monitor with improved diet and lifestyle. # Elevated transaminases, present on admission, ongoing: -AST 101, ALT 93. Alk phos 229. -Likely secondary to hepatitis c. -Continue to monitor. -Hepatitis panel ordered, confirms hepatitis C but no other infectious liver disease is noted. # IV heroin abuse, present on admission, ongoing: -At onset of symptoms of withdraw Suboxone 16mg (two strips) was provided with good result - Now continue daily. -As hospitalist can only prescribe Suboxone in hospital when patient leaves Dr. Wong or Dr. Talbert in the ED should be contacted prescribe outpatient Suboxone. -Encourage patient to followup with [facility] the local Suboxone providers. # Reported history of hepatitis C, present on admission, ongoing: -Hepatitis panel ordered, confirms hepatitis C - treatment deferred to outpatient setting # High risk sexual behavior, present on admission: -Patient's had multiple partners. They were also sharing needles. -No evidence of STD or HIV based on screening studies. disposition:discharge home on oral antibiotics Flagyl and Augmentin per ID. She will be discharged with wound VAC, follow-up arranged at wound care clinic for Wednesday 10/04. Follow-up appointment with chemical dependency team for evaluation arranged for Wednesday 10/04 1pm. Follow-up appointment with new PCP [facility] arranged by social welfare research worker. Condition on discharge stable. Pain controlled. Exam Vital Signs (Last) Date Time Temp Pulse Resp B/P Pulse Ox O2 Delivery O2 Flow Rate FiO2 10/02/16 05:54 36.8 68 16 109/71 96 Room Air 09/27/16 17:24 1.50 Exam General: Alert, Oriented X3, Cooperative, moderate Distress Eyes: PERRL, normal sized pupils Mouth: Mucous Membrane Moist/[place] clear chest no murmur Abdomen: Non-tender, Non-distended, No hepatosplenomegaly Neurological: Grossly Neurologically Intact, SHANEKA:left thigh / hip abscess site s/p I&D .cleanly dressed .Wound VAC in place with minimal output. Left arm recent I&D site cleanly dressed. Test 09/23/16 17:20 09/23/16 18:05 09/23/16 18:39 09/23/16 22:34 Erythrocyte Sedimentation Rate 80mm/hr (0-32) Troponin T < 0.010ug/L (0.0-0.011) C-Reactive Protein 20.3mg/dL (0.0-0.5) Lactic Acid Level 0.7mmol/L (0.4-2.0) Urine Color Yellow (YELLOW) Urine Appearance Clear (CLEAR,HAZY) Urine pH 5.0 (5.0-8.0) Urine Specific Fowler 1.030 (1.003-1.035) Urine Protein 30mg/dL (NEG,TRACE) Urine Glucose (UA) Negativemg/dL (NEGATIVE) Urine Ketones Negativemg/dL (NEGATIVE) Urine Occult Blood Negative (NEGATIVE) Urine Nitrite Negative (NEGATIVE) Urine Bilirubin Negative (NEGATIVE) Urine Urobilinogen Normalmg/dL (NORMAL) Urine Leukocyte Esterase Negative (NEGATIVE) Urine RBC 0-2/hpf (0-2) Urine WBC 0-5/hpf (0-5) Urine Epithelial Cells Moderate/hpf (NONE-MOD) Urine Crystals None seen (NONE SEEN) Urine Bacteria Few/hpf (NONE-FEW) Urine Hyaline Casts None/lpf (NONE) Urine Granular Casts None seen (NONE SEEN) Urine Waxy Casts None seen (NONE SEEN) Urine Red Blood Cell Casts None seen (NONE SEEN) Urine White Blood Cell Casts None seen (NONE SEEN) Urine Mucus Present (None Seen) Urine Trichomonas None seen (NONE SEEN) Urine Yeast None (NONE SEEN) Urinalysis Comment None Urine Culture Reflexed Not indicated Chlamydia trachomatis DNA (BASSAM) Negative (Negative) Neisseria gonorrhoeae DNA (BASSAM) Negative (Negative) Iron Level 23ug/dL (35-150) Total Iron Binding Capacity 246ug/dL (250-450) Percent Iron Saturation 9%sat (15-50) Unsaturated Iron Binding 222.6ug/dL Ferritin 108ng/mL (13-150) Rapid Plasma Reagin Non reactive (Non Reactive) Hepatitis A IgM Antibody Negative (Negative) Hepatitis B Surface Antigen Negative (Negative) Hepatitis B Core IgM Antibody Negative (Negative) Hepatitis C Antibody >11.0s/co ratio Hepatitis C Antibody Comment Comment (.) Hepatitis C Comment . HIV (1&2) Ag and Ab, 4th Generation Non reactive (Non Reactive) Test 09/25/16 07:35 10/01/16 07:25 Direct Bilirubin 0.2mg/dL (0.0-0.3) Vancomycin Level Trough 5.2mcg/mL White Blood Count 6.5th/mm3 (3.8-10.1) Red Blood Count 4.31mil/mm3 (3.90-5.20) Hemoglobin 10.3g/dL (12.0-15.6) Hematocrit 33.9% (35.0-46.0) Mean Corpuscular Volume 78.7fL (81-100) Mean Corpuscular Hemoglobin 23.9pg (27.0-35.0) Mean Corpuscular Hemoglobin Concent 30.4% (32.0-37.0) Red Cell Distribution Width 14.7% (12.3-15.4) Platelet Count 444bil/L (150-400) Neutrophils (%) (Auto) 48.3% (40-74) Lymphocytes (%) (Auto) 34.6% (14-46) Monocytes (%) (Auto) 5.7% (4-12) Eosinophils (%) (Auto) 10.0% (0-5) Basophils (%) (Auto) 0.8% (0-3) Sodium Level 137mEq/L (134-144) Potassium Level 5.2mEq/L (3.5-5.2) Chloride Level 100mEq/L (97-108) Carbon Dioxide Level 24mmol/L (18-29) Blood Urea Nitrogen 16mg/dL (6-24) Creatinine 0.77mg/dL (0.57-1.00) Estimat Glomerular Filtration Rate 116mL/min (>59) Glucose Level 101mg/dL (60-99) Calcium Level 9.1mg/dL (8.5-10.1) Magnesium Level 1.9mg/dL (1.6-2.6) Total Bilirubin 0.2mg/dL (0.0-1.2) Aspartate Amino Transf (AST/SGOT) 28U/L (0-50) Alanine Aminotransferase (ALT/SGPT) 22U/L (0-32) Alkaline Phosphatase 89U/L (25-150) Total Protein 6.9g/dL (6.4-8.4) Albumin 2.9g/dL (3.4-5.0) Microbiology Results SCOTT GS (GRAM STAIN) Final 09/27/16-6169 GRAM STAIN RESULT MANY POLYS MANY GRAM POS COCCI MANY GRAM VARIABLE RODS SCOTT CULT AEROBIC Final 06/10/17-0750 Organism 1 STREP MITIS GROUP COLONY COUNT/QUANTITY MODERATE GROWTH Organism 2 WITH NORMAL GUMARO COLONY COUNT/QUANTITY LIGHT GROWTH STREP MITIS GROUP Species: sanguinis 1. STREP MITIS GROUP M.I.C Interp --------- ------ * AMPICILLIN <=0.25 S * CEFOTAXIME 0.25 S * CEFTRIAXONE .50 S * CLINDAMYCIN >=1 R * ERYTHROMYCIN >=8 R * LEVOFLOXACIN <=0.25 S * LINEZOLID <=2 S * PENICILLIN-G 0.12 S * VANCOMYCIN 0.5 S ANAEROBIC CULTURE Final 10/02/16 Organism 1 PREVOTELLA ORALIS COLONY COUNT/QUANTITY HEAVY GROWTH BETA LACTAM (CEFINASE) RESISTANT BETA LACTAM (CEFINASE) RESISTANT Discharge Medications Discharge Medications Amoxicillin/Clav K 875-125 mg (Augmentin 875-125 mg) 1 Each Tablet 1 TABLET PO BID Prescribed by: ISAIAS TORRES MD Metronidazole (Metronidazole) 500 Mg Tablet 500 MG PO BID Prescribed by: ISAIAS TORRES MD As needed Ibuprofen (Ibuprofen) 600 Mg Tablet 600 MG PO BID PRN PRN For Pain Prescribed by: ISAIAS TORRES MD oxyCODONE-Acetaminophen 5-325 mg (oxyCODONE-Acetaminophen 5-325 mg) 1 Each Tablet 1 TAB PO Q6H PRN PRN For Pain Prescribed by: ISAIAS TORRES MD Followup Plan Disposition: Home Discharge Diet: No restrictions Discharge Activity: Limited until seen by PCP Patient Instructions You were hospitalized due to sepsis secondary to left hip abscess. You underwent left hip incision and drainage. You have been treated with IV antibiotics. Please continue Flagyl 500 mg by mouth twice a day for 1 more week and Augmentin 875 mg by mouth twice a day for 2 more weeks. Please continue using wound VAC as instructed. Please follow-up with wound care clinic on Tuesday. Please follow-up with your new PCP [facility] on Tuesday as appointed. Please follow-up chemical dependency team on Tuesday has scheduled. Please follow-up with Dr. Devine in 1-2 weeks. Follow-up Provider: [facility] Follow-up with PCP in: 1 week (Tuesday) Provider: Chiki Devine MD Follow-up in: 1 week Mid-level Provider: [facility] Follow-up with Mid-level in: 1 week (Tuesday) Time spent 40 minutes copies to: [facility]; Ryan Melgoza MD; [facility] Residency [facility]; Chiki Devine MD, Melaku MD Oct 02, 2016 10:32
[2016-10-02] MEDS: Buprenorphine 2 mg SL Tablet SL PRN (10:40)
[2016-10-02 11:16] VITALS: BP 120/70; PULSE 64; RESP 18; O2SAT 96
[2016-10-02] MEDS: Ertapenem Inj 1,000 MG in 0.9% Sodium Chloride 50 ML IV SCH (11:48)
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
[2016-10-02] MEDS: Polyethylene Glycol (PEG) 17 Gm Powder PO PRN (13:04)
--- NOTE | 2016-10-02 14:42 | NUR ---
Case Management: D: Discharge has been written, but pt has appealed d/c with [facility]. . Clinicals faxed, MNNN 12 signed.
[2016-10-02 15:28] VITALS: BP 103/63; PULSE 59; RESP 18; O2SAT 97
[2016-10-02] MEDS: Promethazine Inj 12.5 MG in 0.9% Sodium Chloride 100 ML IV PRN (16:34)
[2016-10-02] MEDS: Diphen-Lido-Mylanta 1:1:1 Susp 15 mL Syringe PO PRN (17:36)
--- NOTE | 2016-10-02 18:11 | NUR ---
Activity Pt declined to have thigh dressing changed today and stated that "it should be good till Tuesday when I have my wound care appointment." Pt is appealing discharge and is possible pt might not go to appointment, but she still declined to have dressing changed. Dressing is CDI. Wound vac in place with very minimal sero-sanguinous output. Pt had one episode of nausea this afternoon w/o vomiting. IV medications given and episode resolved. Pt having increasing tooth pain at 1730. Crying out and asking for help. Oral mouth rinse given and MD paged, have not heard back yet. Pt is resting more comfortably after meds. Bed in low, call light in reach, continue Q1 hour monitoring.
[2016-10-02 19:50] VITALS: BP 111/58; PULSE 82; RESP 18; O2SAT 99
--- NOTE | 2016-10-03 04:48 | NUR ---
activity pt had an uneventful night. she declined her mouth wash saying her tooth pain was tolerable. she took motrin and melatonin at HS and has slept appearing comfortable for most of the night. she has denied the need for any other pain medications at rounding. dressings are c/d/i. wound vac in place. hourly rounding continues.
[2016-10-03 05:15] VITALS: BP 114/73; PULSE 58; RESP 16; O2SAT 97
[2016-10-03] MEDS: Buprenorphine 2 mg SL Tablet SL PRN (09:17)
[2016-10-03 11:02] VITALS: BP 113/67; PULSE 68; RESP 17; O2SAT 97
[2016-10-03] MEDS ORDERED: 0.9% Sodium Chloride 100 ML ONE (11:34)
[2016-10-03] MEDS: Ertapenem Inj 1,000 MG in 0.9% Sodium Chloride 50 ML IV SCH (11:47)
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
--- NOTE | 2016-10-03 13:39 | NUR ---
Case Management: Discharge Appeal D: Contacted by Yuly with [employer]. Pt's appeal has been denied, Liability begins tomorrow 10/04/2016 at noon. I spoke with pt, she has been contacted by [facility] and is aware of the decision. BASHIR Swenson also aware of determination.
[2016-10-03 16:24] VITALS: BP 99/64; PULSE 63; RESP 18; O2SAT 96
--- NOTE | 2016-10-03 16:28 | NUR ---
ACTIVITY Patient is independent in room. Declined to have dressing changed to R hip, stated 'he changed it on tuesday and should be good til tomorrow'. Dressing is C/D/I/ Wound Vac dressing intact with good suction to L hip. Patient asked that IV catheter be removed, since patient is going to be discharged tomorrow. Only receiving IV abx through IV 1x/day and already received today. Paged MD for order to remove. Stated having some pain in mouth, but declined any mouth wash for pain relief. Continue to monitor.
[2016-10-03 20:40] VITALS: BP 104/61; PULSE 68; RESP 16; O2SAT 97
[2016-10-03] MEDS: Amoxicillin-Clav 875-125 mg Tablet PO SCH (21:10)
[2016-10-03] MEDS: Diphen-Lido-Mylanta 1:1:1 Susp 15 mL Syringe PO PRN (21:11)
--- NOTE | 2016-10-04 04:34 | NUR ---
Discharge Per report patient is able to discharge at anytime. Is currently awaiting to depart nearer to follow up appointment time 1130 this am. Tolerating oral ABX, pain managed with current medication. Wound vac sealed and working properly. Denies SOB and intolerable pain at this time.
[2016-10-04 05:20] VITALS: BP 99/64; PULSE 71; RESP 18; O2SAT 95
[2016-10-04] MEDS ORDERED: ONDA4TAB9 PO (08:16)
[2016-10-04 08:43] VITALS: BP 105/63; PULSE 72; RESP 16; O2SAT 97
[2016-10-04] MEDS: Diphen-Lido-Mylanta 1:1:1 Susp 15 mL Syringe PO PRN (08:53)
[2016-10-04] MEDS: Amoxicillin-Clav 875-125 mg Tablet PO SCH (08:53)
[2016-10-04] MEDS: Buprenorphine 2 mg SL Tablet SL PRN (08:54)
--- NOTE | 2016-10-04 10:30 | NUR ---
Wound Note NPWT changed at left thigh wounds today. Black foam to wound beds, pressure brought up to 125 mmHg continuous pressure a good seal was attained, patient sent with home going unit and will follow up at the wound center on 10/07 for dressing change. Dressing changed at right lateral thigh, using silverlon and mepilex adhesive foam dressing.
--- NOTE | 2016-10-04 11:59 | NUR ---
Discharge 0840 - Contacted the Pharmacy as she was requesting the Magic Mouthwash which needed to be prepared in the Pharmacy. It was delivered and given to her. 1155 - She discharged from [facility]. No telemetry or IV to discontinue. Discussed and gave her her discharge paperwork (prescriptions, instructions, and care notes). Joseph the Wound Care Therapist changed her dressings. She said she felt comfortable with her wound care and didn't need more education at this time. Was given a bus pass by social work. She said her ride was about 30-45 minutes away, but due to a previously agreed upon discharge time of noon she was shown the chairs in the lobby where she could be discharged to to wait for her ride.
--- NOTE | 2016-10-04 14:50 | NUR ---
Social Work: Discharge D: EMR reviewed. Pt attempted to appeal discharge. Pt does not have medicare and SW explained that pt can't appeal discharge. Pt was told by RN on 10/03 that pt is medically stable and must leave hospital by 1200pm on 10/04. Pt was agreeable to leaving at 1200pm. Pt attempted to find transportation but was unable to contact anyone for transportation. SW provided pt with bus pass and logged bus pass in ER bus pass binder. Pt discharged at 1200 and was agreeable. A: Pt who is independent at baseline. P: Pt attempted to find transportation but was unable to contact anyone for transportation. SW provided pt with bus pass and logged bus pass in ER bus pass binder. Pt discharged at 1200 and was agreeable. BASHIR Wallace
--- NOTE | 2016-10-07 15:07 | NUR ---
Missing Wound Vac Patient was discharged home with a home wound vac and has never returned to the wound center for a dressing change or recheck. She called and wanted to be seen Tuesday morning and was told to come in but she never showed up. Patient was also scheduled for a wound care visit today at 10:50am and no showed for this appointment also. 2 attempts to reach patient by phone at the number listed in the EMR have been unsuccessful.
== END 2016-10-04 11:57 | disposition home or self-care (01) | DRG 854 ==
LOC: SED 15:41 → MPC 20:04 → OSC 09-27 16:52
PROVIDERS: ADMIT Hospitalist; ATTEND Hospitalist
PROC: 0J9M0ZZ Drainage of Left Upper Leg Subcutaneous Tissue and Fascia, Open Approach (ICD-10-PCS; 2016-09-27)
PROC: 0J9M0ZZ Drainage of Left Upper Leg Subcutaneous Tissue and Fascia, Open Approach (ICD-10-PCS; principal; 2016-09-27 16:00)
DX: A41.9 Sepsis, unspecified organism (principal); L02.416 Cutaneous abscess of left lower limb; L02.414 Cutaneous abscess of left upper limb; F11.20 Opioid dependence, uncomplicated; B95.61 Methicillin susceptible Staphylococcus aureus infection as the cause of diseases classified elsewhere; B95.0 Streptococcus, group A, as the cause of diseases classified elsewhere; Z16.24 Resistance to multiple antibiotics; B19.20 Unspecified viral hepatitis C without hepatic coma; F17.210 Nicotine dependence, cigarettes, uncomplicated; D47.3 Essential (hemorrhagic) thrombocythemia; Z72.51 High risk heterosexual behavior; S71.101A Unspecified open wound, right thigh, initial encounter